=== PATIENT | male | born 1990 | race Caucasian/White ===

== ENCOUNTER 2019-01-17 02:24 | Emergency (ER) | payer OTHER ==
[~2019-01-17 02:24] MED LIST: Haloperidol INJ IV/IM* 5 MG/ML AMP ONE; LORazepam INJ* 2 MG/ML 1 ML VIAL ONE; diPHENhydraMINE IV* 50 MG/ML 1 ml VIAL (BENADRYL) ONE
[2019-01-17] MEDS ORDERED: Haloperidol TAB* 5 MG PO ONE (02:43)
[2019-01-17] MEDS ORDERED: LORazepam TAB(*) 1 MG PO ONE ×2 (02:44→10:21)
[2019-01-17] MEDS ORDERED: LORazepam INJ* 2 MG/ML 1 ML VIAL ONE (02:48)
[2019-01-17] MEDS ORDERED: Haloperidol INJ IV/IM* 5 MG/ML AMP ONE (02:50)
--- NOTE | 2019-01-17 02:55 | ED ---
Psychiatric Complaint - HPI Summary HPI Summary: A 29 y/o male brought in by [facility] ambulance and handcuffed by police presents to [facility] with a chief complaint of being brought in on a 941. At triage he rated his pain as a 0/10 in severity. Police were called because the patient was reportedly trashing someone's apartment. The patient denies trashing anyone' s apartment. He reports that he had less than one beer [employer]. He currently denies taking his medication and he denies being suicidal. The patient has a vast psychiatric history and appears angry. - History Of Current Complaint Chief Complaint: EDMentalHealth Time Seen by Provider: 01/17/19 02:30 Hx Obtained From: Patient, EMS, Other: - police Onset/Duration: Sudden Onset, Lasting Minutes, Still Present Timing: Minutes Severity Initially: Mild Severity Currently: Mild Character: Angry Aggravating Factor(s): Nothing Alleviating Factor(s): Nothing Associated Signs And Symptoms: Negative: Confused Has Suicidal: Denies: Thoughts - Allergies/Home Medications Allergies/Adverse Reactions: Allergies Allergy/AdvReac Type Severity Reaction Status Date / Time No Known Allergies Allergy Verified 02/13/17 02:40 PMH/Surg Hx/FS Hx/Imm Hx Musculoskeletal History: Denies: Hx Arthritis, Hx Back Problems Sensory History: Reports: Hx Contacts or Glasses Denies: Hx Hearing Aid Opthamlomology History: Reports: Hx Contacts or Glasses Neurological History: Reports: Hx Headaches - hx of concussions from football Psychiatric History: Reports: Hx Anxiety, Hx Depression, Hx Post Traumatic Stress Disorder, Hx Inpatient Treatment, Hx Community Mental Health Tx, Hx Bipolar Disorder, Hx Suicide Attempt, Hx of Violent Episodes Against Others, Hx Substance Abuse Denies: Hx Eating Disorder Infectious Disease History: No Infectious Disease History: Denies: Traveled Outside the [place] in Last 30 Days - Family History Known Family History: Positive: Hypertension - Social History Alcohol Use: None Alcohol Amount: 1 twelve pack , twice a day Substance Use Type: Reports: Other Substance Use Comment - Amount & Last Used: opiods Smoking Status (MU): Current Every Day Smoker Type: Cigarettes Have You Smoked in the Last Year: Yes Review of Systems Negative: Fever Psychological: Other - positive: brought in on a 941 for reportedly trashing someones apartment Positive: Other - negative: SI All Other Systems Reviewed And Are Negative: Yes Physical Exam - Summary Physical Exam Summary: VITAL SIGNS: Reviewed. GENERAL: Patient is a well-developed and nourished MALE who is lying comfortable in the stretcher. Patient is not in any acute respiratory distress. HEAD AND FACE: No signs of trauma. No ecchymosis, hematomas or skull depressions. No sinus tenderness. EYES: PERRLA, EOMI x 2, No injected conjunctiva, no nystagmus. EARS: Hearing grossly intact. Ear canals and tympanic membranes are within normal limits. MOUTH: Oropharynx within normal limits. NECK: Supple, trachea is midline, no adenopathy, no JVD, no carotid bruit, no c- spine tenderness, neck with full ROM. CHEST: Symmetric, no tenderness at palpation LUNGS: Clear to auscultation bilaterally. No wheezing or crackles. CVS: Regular rate and rhythm, S1 and S2 present, no murmurs or gallops appreciated. ABDOMEN: Soft, non-tender. No signs of distention. No rebound no guarding, and no masses palpated. Bowel sounds are normal. EXTREMITIES: FROM in all major joints, no edema, no cyanosis or clubbing. NEURO: Alert and oriented x 3. No acute neurological deficits. Speech is normal and follows commands. SKIN: Dry and warm Psych: Patient is cooperative however he seems angry Triage Information Reviewed: Yes Vital Signs On Initial Exam: Initial Vitals Temp Pulse Resp BP Pulse Ox 98.9 F 84 14 147/97 96 01/17/19 02:28 01/17/19 02:28 01/17/19 02:28 01/17/19 02:28 01/17/19 02:28 Vital Signs Reviewed: Yes Diagnostics - Vital Signs Vital Signs Temp Pulse Resp BP Pulse Ox 01/17/19 02:28 98.9 F 84 14 147/97 96 - Laboratory Result Diagrams: 01/17/19 03:40 01/17/19 03:40 Lab Statement: Any lab studies that have been ordered have been reviewed, and results considered in the medical decision making process. Re-Evaluation - Re-Evaluation First Eval Re-Evaluation Time: 03:04 Change: Worse Comment: Patient was being uncooperative so he will be given Haldol IM and Ativan IM. Second Eval Re-Evaluation Time: 08:45 Change: Unchanged Comment: Pt is medically cleared for a MHE. He is now standing up, calm, and cooperative. Third Eval Re-Evaluation Time: 10:00 Change: Unchanged Comment: Pt is lying in bed horizontally. He denies any SI or HI. Pt uses alcohol occasionally but denies any smoking. He uses K2 and used it last a few days ago. Fourth Eval Re-Evaluation Time: 10:20 Change: Improved Comment: Pt is sitting up and using crayons. He agrees to take Ativan PO. Course/Dx - Course Course Of Treatment: A 29 y/o male brought in by [facility] ambulance and handcuffed by police presents to [facility] with a chief complaint of being brought in on a 941. At triage he rated his pain as a 0/10 in severity. Police were called because the patient was reportedly trashing someone's apartment. The patient denies trashing anyone's apartment. He reports that he had less than one beer [employer]. He reports that he currently denies taking his medication and he denies being suicidal. The patient has a vast psychiatric history and appears angry. The physical exam revealed that the patient was cooperative but seemed angry. Patient was then being uncooperative and so he was given Haldol IM and Ativan IM.Bloodwork, chemisties and toxicology obtained and are WNL. This patient will be signed out from Dr. Shaw to Dr. Ayoub upon shift change at 07:00 01/17/19 pending medical clearance and MHE. - Differential Dx/Clinical Impression Provider Diagnosis: Mental health problem, Hypokalemia, Substance abuse Discharge - Sign-Out/Discharge Documenting (check all that apply): Sign-Out Patient Signing out patient TO: Sujatha Ayoub - pending medical clearance and MHE. Patient Received Moderate/Deep Sedation with Procedure: No - Discharge Plan Condition: Stable Disposition: HOME Referrals: No Primary Care Phys,NOPCP [Primary Care Provider] - - Billing Disposition and Condition Condition: STABLE Disposition: Home - Attestation Statements Document Initiated by Scribe: Yes Documenting Scribe: Christopher Lucero Provider For Whom Scribe is Documenting (Include Credential): Charlotte Shaw MD Scribe Attestation: Christopher Grover scribed for Charlotte Shaw MD on 01/17/19 at 2016. Scribe Documentation Reviewed: Yes Provider Attestation: The documentation as recorded by the scribe, Christopher Lucero accurately reflects the service I personally performed and the decisions made by me, Charlotte Shaw MD Status of Scribe Document: Viewed
[2019-01-17] MEDS ORDERED: LORazepam INJ* 2 MG/ML 1 ML VIAL IM ONE (02:58)
[2019-01-17] MEDS ORDERED: Haloperidol INJ IV/IM* 5 MG/ML AMP IM ONE (02:58)
[2019-01-17] MEDS ORDERED: diPHENhydraMINE IV* 50 MG/ML 1 ml VIAL (BENADRYL) IM ONE (02:59)
[2019-01-17 03:49] LABS: ABS Basophils 0 10^3/ul (0-0.2); ABS Eosinophils 0 10^3/ul (0-0.6); ABS Lymphocytes 1.4 10^3/ul (1.0-4.8); ABS Monocytes 0.6 10^3/ul (0-0.8); ABS Nucleated RBC 0 10^3/ul; Eosinophil % 0.7 %; Hematocrit 43 % (36-46); Hemoglobin 15.1 g/dL (14.0-18.0); Mean Corpuscular HGB Conc 35 g/dL (31-36); Mean Corpuscular Hemoglobin 33 pg (27-31); Mean Corpuscular Volume 94 fL (80-94); Mean Platelet Volume 6.8 fL (7.4-10.4); Nucleated Red Blood Cells % 0.1; Platelet Count 247 10^3/uL (150-450); Red Blood Count 4.61 10^6 /uL (4.18-5.48); Red Cell Distribution Width 12 % (10.5-15); White Blood Count 7.1 10^3/uL (3.5-10.8)
[2019-01-17 04:05] LABS: ALT 30 U/L (7-52); AST 23 U/L (13-39); Albumin 4.6 g/dL (3.2-5.2); Albumin/Globulin Ratio 2.2 (1-3); Alkaline Phosphatase 89 U/L (34-104); Anion Gap 8 mmol/L (2-11); BUN/Creatinine Ratio 11.9 (8-20); Blood Urea Nitrogen 10 mg/dL (6-24); CO2 Carbon Dioxide 25 mmol/L (22-32); Calcium 9.4 mg/dL (8.6-10.3); Chloride 104 mmol/L (101-111); EGFR African American 132.6 (>60); EGFR Non-African American 109.6 (>60); Globulin 2.1 g/dL (2-4); Glucose 119 mg/dL (70-100); Potassium 3.1 mmol/L (3.5-5.0); Sodium 137 mmol/L (135-145); Total Protein 6.7 g/dL (6.4-8.9)
[2019-01-17 04:33] LABS: Acetaminophen < 15 mcg/mL; Alcohol < 10 mg/dL (<10); Salicylate < 2.50 mg/dL (<30)
[2019-01-17 04:49] LABS: TSH (Thyroid Stimulating Horm) 1.76 mcIU/mL (0.34-5.60)
--- NOTE | 2019-01-17 08:05 | ED ---
Progress - Progress Note Progress Note: Receiving sign out from Dr. Shaw, pending medical clearance and MHE at 0700 . Pt is currently sleeping, but was aroused. He is not speaking but is cooperative with exam. Pt was brought in on a 9.41 status and was given Haldol, Benadryl and Ativan at 03:04am. As per nurse Eder, he is on q15 min supervision. As pt is waking up he wretches but does not vomit. PMHx anxiety, depression, PTSD, bipolar disorder. Vital signs: 110 bpm, BP 99/64, O2 sat 94%. Appearance: Well-appearing, no pain distress, well-nourished Skin: Warm, color reflects adequate perfusion, dry Head: Normal Head/Face inspection, atraumatic Eyes: Conjunctiva clear ENT: Normal inspection Neck: Supple, no nodes, no JVD Respiratory: Lungs clear, normal breath sounds, no respiratory distress Cardio: RRR, No murmur, pulses normal, brisk capillary refill Abdomen: Soft, nontender, wretching but not vomiting Bowel sounds: Present Musculoskeletal: Strength Intact/ROM intact, no calf tenderness, no edema. Psychological: Normal Neuro: Alert, muscle tone normal, no focal deficit Re-Evaluation - Re-Evaluation First Eval Re-Evaluation Time: 07:28 Change: Unchanged Comment: Evaluated pt at change of shift. Second Eval Re-Evaluation Time: 08:45 Change: Unchanged Comment: Pt is medically cleared for a MHE. He is now standing up, calm, and cooperative. Third Eval Re-Evaluation Time: 10:00 Change: Unchanged Comment: Pt is lying in bed horizontally. Advised to lie on stretcher in usual fashion. Nurse Eder reported behavior of putting items in sink. Nurse's notes reviewed. Further telemetry monitoring not necessary. Pt is cooperative. He denies any SI or HI. Pt uses alcohol occasionally but denies any smoking. He uses K2 and used it last a few days ago. Fourth Eval Re-Evaluation Time: 10:20 Change: Improved Comment: Pt is sitting up and using crayons. He agrees to take Ativan PO. Denies SI/HI. Restless but cooperative. Fifth Eval Re-Evaluation Time: 15:15 Change: Improved Comment: Pt's mother is here. Pt sitting on bed calmly. Denies SI/HI. Mother willing to take pt home. Pt agrees. Course/Dx - Course Course Of Treatment: Receiving sign out from Dr. Shaw, pending medical clearance and MHE. He is not speaking but is cooperative with exam. Pt was brought in on a 9.41. A physical exam was normal. Pt was medicated at 03:04 with haldol, benadryl, ativan all IM. Pt uses alcohol occasionally but denies any smoking. He uses K2 and used it last a few days ago. Pt has a potassium of 3.1 and he was given KCl 40 mEq. UA was positive for cannabinoids. Pt medications reviewed this visit. Nurses notes reviewed. Allergies noted. In the ED course, pt mother came to the ED, and states she is willing to take him home. He has been getting care at a residential/judaism. He is discharged as per Dr. Matos with final dx substance abuse, and hypokalemia. He is agreeable with this plan. - Diagnoses Provider Diagnoses: Hypokalemia, Substance abuse - Provider Notifications Discussed Care Of Patient With: Boo Matos Time Discussed With Above Provider: 10:11 Instructed by Provider To: Other - Pending MHE. At 15:00 spoke to extrusion operator Criselda on behalf of Dr. Matos. Pt is homeless and has been sleeping in a judaism. As per mother last night pt was agitated and confused, and was speaking jibberish. Mother is now present and is willing to take him home. Final dx of substance abuse. Discharge - Sign-Out/Discharge Documenting (check all that apply): Patient Departure - Discharge with mother , Receiving Sign-Out Receiving patient FROM: Charlotte Shaw - 01/17/19, 0700 Patient Received Moderate/Deep Sedation with Procedure: No - Discharge Plan Condition: Stable Disposition: HOME Referrals: No Primary Care Phys,NOPCP [Primary Care Provider] - - Billing Disposition and Condition Condition: STABLE Disposition: Home - Attestation Statements Document Initiated by Scribe: Yes Documenting Scribe: Ledy Araujo Provider For Whom Scribe is Documenting (Include Credential): Sujatha Ayoub MD Scribe Attestation: Ledy Grover, scribed for Sujatha Ayoub MD on 01/17/19 at 2312. Scribe Documentation Reviewed: Yes Provider Attestation: The documentation as recorded by the scribe, Ledy Araujo accurately reflects the service I personally performed and the decisions made by me, Sujatha Ayoub MD Status of Scribe Document: Viewed
[2019-01-17 08:33] LABS: Urine Appearance Cloudy; Urine Bacteria Absent (Absent); Urine Bilirubin Negative (Negative); Urine Blood Negative (Negative); Urine Color Yellow; Urine Glucose Negative (Negative); Urine Ketones Negative (Negative); Urine Nitrite Negative (Negative); Urine Protein Negative (Negative); Urine Red Blood Cell 1+(3-5/hpf) (Absent); Urine Specific Gravity 1.011 (1.010-1.030); Urine Squamous Epithelial Cell Present (Absent); Urine Urobilinogen Negative (Negative); Urine White Blood Cell 3+(>20/hpf) (Absent)
[2019-01-17] MEDS ORDERED: Potassium Chlor TAB* 20 MEQ TAB.ER PO ONE (08:46)
[2019-01-17 08:50] LABS: Barbiturates Urine Screen None Detected (None Detect); Benzodiazepine Urine Screen None Detected (None Detect); Urine Cannabinoids Screen Presumptive Positive (None Detect)
[2019-01-17] MEDS ORDERED: Ziprasidone CAP* 80 MG PO ONE (14:06)
[2019-01-17 16:16] VITALS: BP 000/00
== END 2019-01-17 16:15 | disposition home or self-care (01) ==
LOC: ED 02:24
DX: E87.6 Hypokalemia (principal); F12.10 Cannabis abuse, uncomplicated; F41.9 Anxiety disorder, unspecified; F32.9 Major depressive disorder, single episode, unspecified; F17.210 Nicotine dependence, cigarettes, uncomplicated
CPT/HCPCS: 36415; 80053; 80307; 80320; 80329; 81003; 81015; 84443; 85025; 87086; 96372; 99285; A9270-GY; G0480; J1200; J1630; J2060

== ENCOUNTER 2019-01-19 14:31 | Inpatient (IN) | payer OTHER ==
[2019-01-19] MEDS ORDERED: Nicotine Inhaler* 10 MG AMP INH PRN (14:43)
[2019-01-19] MEDS ORDERED: KETAMINE HCL* 50 MG/ML 10 ML VIAL ONE (14:45)
--- NOTE | 2019-01-19 14:47 | ED ---
Psychiatric Complaint - HPI Summary HPI Summary: Patient is a 29 y/o male brought in by police who presents to the ED c/o aggression. As per police, they were called in for a report of a male trying to get in and out of cars. Patient was found on the side of the road. Upon police arrival patient was aggressive and would not give them any information. When asked for a drivers license patient gave the police a playing card. He c/o being cold. Patient was here on 01/17/19 on a 9.41 for aggressive behavior. While here patient was sedated and diagnosed with substance abuse and hypokalemia. PMHx anxiety, depression, PTSD, bipolar disorder, violent episodes , substance abuse. He has a hx of K2 spice and opioid use. Patient is a smoker. Patient is a level 5 caveat due to his AMS. - History Of Current Complaint Chief Complaint: EDMentalHealth Time Seen by Provider: 01/19/19 14:36 Hx Obtained From: EMS, Medical Records Hx From Patient Unobtainable Due To: Altered Mental Status Onset/Duration: Gradual Onset, Still Present Timing: Constant Character: Angry - agitated Aggravating Factor(s): Drug Use - possible K2 Alleviating Factor(s): Nothing Associated Signs And Symptoms: Positive: Hostile Related History: Positive For: Prior Psychiatric Issues - Allergies/Home Medications Allergies/Adverse Reactions: Allergies Allergy/AdvReac Type Severity Reaction Status Date / Time No Known Allergies Allergy Verified 01/19/19 14:33 PMH/Surg Hx/FS Hx/Imm Hx Musculoskeletal History: Denies: Hx Arthritis, Hx Back Problems Sensory History: Reports: Hx Contacts or Glasses Denies: Hx Hearing Aid Opthamlomology History: Reports: Hx Contacts or Glasses Neurological History: Reports: Hx Headaches - hx of concussions from football Psychiatric History: Reports: Hx Anxiety, Hx Depression, Hx Post Traumatic Stress Disorder, Hx Inpatient Treatment, Hx Community Mental Health Tx, Hx Bipolar Disorder, Hx Suicide Attempt, Hx of Violent Episodes Against Others, Hx Substance Abuse Denies: Hx Eating Disorder Infectious Disease History: Denies: Traveled Outside the [place] in Last 30 Days - Family History Known Family History: Positive: Hypertension - Social History Alcohol Use: None Alcohol Amount: 1 twelve pack , twice a day Hx Substance Use: Yes Substance Use Type: Reports: Synthetic Drugs - K2 spice, Other Substance Use Comment - Amount & Last Used: opiods Hx Tobacco Use: Yes Smoking Status (MU): Current Every Day Smoker Type: Cigarettes Have You Smoked in the Last Year: Yes Review of Systems Positive: Other - cold Positive: Other - aggression All Other Systems Reviewed And Are Negative: No Physical Exam - Summary Physical Exam Summary: Appearance: Well appearing, no pain distress Skin: warm, dry, reflects adequate perfusion Head/face: normal Eyes: EOMI, BRIANNA ENT: mucous membranes moist Neck: supple, non-tender Respiratory: CTA, breath sounds present Cardiovascular: RRR, pulses symmetrical Abdomen: non-tender, soft Bowel Sounds: present Musculoskeletal: normal, strength/ROM intact Neuro: normal, sensory motor intact, A&Ox3 Psych: appears agitated but mute, makes hand gestures only, sighs repeatedly Triage Information Reviewed: Yes Vital Signs Reviewed: Yes Completion Of Physical Exam Limited Due To: Level 5 - AMS Diagnostics - Laboratory Result Diagrams: 01/19/19 15:23 01/19/19 15:23 Lab Statement: Any lab studies that have been ordered have been reviewed, and results considered in the medical decision making process. Re-Evaluation - Re-Evaluation First Eval Re-Evaluation Time: 18:30 Change: Unchanged Comment: Pt is medically cleared for a MHE. Second Eval Re-Evaluation Time: 18:56 Change: Unchanged Comment: Pt is still only speaking in hand gestures. Course/Dx - Course Course Of Treatment: Nurse's notes reviewed. Patient presents for the same symptoms only days apart. He previously had been known to be smoking spice. Today he is mostly medial and makes only gestures with hand motions. He is positive again for marijuana but is unable to give us much more in the way of history. He was observed here for some time and then had mental health evaluation given that he was calm but remained psychotic. Mental health and discussion with the psychiatrist wish to observe him for more time in hopes of his sobering. They wanted medications to be given so Ativan was given here. He 'll be observed through the night and reevaluated when able. Signed out to oncoming ER physician. - Differential Dx/Clinical Impression Differential Diagnosis/HQI/PQRI: Positive: Acute Psychosis, Drug Overdose/ Unintentional Provider Diagnosis: Acute psychosis - Physician Notifications Discussed Care Of Patient With: Boo Matos Time Discussed With Above Provider: 20:30 Instructed by Provider To: Other - Give pt Haldol and Ativan and let him sober up. Pt can then be discharged after sobriety. Discharge - Sign-Out/Discharge Documenting (check all that apply): Sign-Out Patient Signing out patient TO: Charlotte Shaw Patient Received Moderate/Deep Sedation with Procedure: No - Discharge Plan Condition: Stable Referrals: No Primary Care Phys,NOPCP [Primary Care Provider] - - Billing Disposition and Condition Condition: STABLE - Attestation Statements Document Initiated by Scribe: Yes Documenting Scribe: Ledy Araujo Provider For Whom Scribe is Documenting (Include Credential): Sp Thornton MD Scribe Attestation: Ledy Grover, scribed for Sp Thornton MD on 01/19/19 at 2123. Scribe Documentation Reviewed: Yes Provider Attestation: The documentation as recorded by the Ledy klein accurately reflects the service I personally performed and the decisions made by , Sp Thornton MD Status of Scribe Document: Viewed
[2019-01-19 15:34] LABS: ABS Basophils 0 10^3/ul (0-0.2); ABS Eosinophils 0 10^3/ul (0-0.6); ABS Lymphocytes 0.7 10^3/ul (1.0-4.8); ABS Monocytes 0.7 10^3/ul (0-0.8); ABS Neutrophils 10.6 10^3/ul (1.5-7.7); ABS Nucleated RBC 0 10^3/ul; Eosinophil % 0.2 %; Hematocrit 45 % (36-46); Hemoglobin 15.7 g/dL (14.0-18.0); Lymphocyte % 5.9 %; Mean Corpuscular HGB Conc 35 g/dL (31-36); Mean Corpuscular Hemoglobin 33 pg (27-31); Mean Corpuscular Volume 94 fL (80-94); Mean Platelet Volume 6.6 fL (7.4-10.4); Nucleated Red Blood Cells % 0.1; Platelet Count 237 10^3/uL (150-450); Red Blood Count 4.73 10^6 /uL (4.18-5.48); Red Cell Distribution Width 12 % (10.5-15)
[2019-01-19 15:50] LABS: ALT 35 U/L (7-52); AST 43 U/L (13-39); Albumin 4.7 g/dL (3.2-5.2); Alkaline Phosphatase 99 U/L (34-104); Anion Gap 7 mmol/L (2-11); BUN/Creatinine Ratio 15.8 (8-20); Blood Urea Nitrogen 15 mg/dL (6-24); CO2 Carbon Dioxide 28 mmol/L (22-32); Calcium 9.4 mg/dL (8.6-10.3); Chloride 101 mmol/L (101-111); EGFR African American 115.1 (>60); EGFR Non-African American 95.1 (>60); Globulin 2.3 g/dL (2-4); Glucose 92 mg/dL (70-100); Potassium 3.9 mmol/L (3.5-5.0); Sodium 136 mmol/L (135-145)
[2019-01-19 15:56] LABS: Acetaminophen < 15 mcg/mL; Alcohol < 10 mg/dL (<10); Salicylate < 2.50 mg/dL (<30)
[2019-01-19 16:10] LABS: TSH (Thyroid Stimulating Horm) 0.96 mcIU/mL (0.34-5.60)
[2019-01-19 18:28] LABS: Urine Appearance Clear; Urine Bilirubin Negative (Negative); Urine Blood Negative (Negative); Urine Color Yellow; Urine Glucose Negative (Negative); Urine Ketones 2+ (Negative); Urine Nitrite Negative (Negative); Urine Protein Negative (Negative); Urine Specific Gravity 1.025 (1.010-1.030); Urine Urobilinogen Negative (Negative)
[2019-01-19 18:40] LABS: Barbiturates Urine Screen None Detected (None Detect); Benzodiazepine Urine Screen None Detected (None Detect); Urine Cannabinoids Screen Presumptive Positive (None Detect)
[2019-01-19] MEDS ORDERED: LORazepam TAB(*) 1 MG PO ONE (20:24)
[2019-01-19 20:43] LABS: Creatine Kinase 1375 U/L (10-223)
--- NOTE | 2019-01-19 22:38 | ED ---
Progress - Progress Note Progress Note: Patient is a 29 y/o male brought in by police who presents to the ED c/o aggression. Patient was signed out from Dr. Sp Thornton to Dr. Charlotte Shaw during a shift change, pending disposition and sobriety. - Consult/PCP Time Called: 19:15 Re-Evaluation - Re-Evaluation First Eval Re-Evaluation Time: 18:30 Change: Unchanged Comment: Pt is medically cleared for a MHE. Second Eval Re-Evaluation Time: 18:56 Change: Unchanged Comment: Pt is still only speaking in hand gestures. Course/Dx - Course Course Of Treatment: Nurse's notes reviewed. Patient presents for the same symptoms only days apart. He previously had been known to be smoking spice. Today he is mostly medial and makes only gestures with hand motions. He is positive again for marijuana but is unable to give us much more in the way of history. He was observed here for some time and then had mental health evaluation given that he was calm but remained psychotic. Mental health and discussion with the psychiatrist wish to observe him for more time in hopes of his sobering. They wanted medications to be given so Ativan was given here. He 'll be observed through the night and reevaluated when able. Signed out to oncoming ER physician. Dr. Shaw spoke with Dr. Boo Matos, psychiatry, who will accept the patient with a dx of psychosis. - Diagnoses Provider Diagnoses: Psychosis - Provider Notifications Discussed Care Of Patient With: Boo Matos - Psychiatry Time Discussed With Above Provider: 23:02 Instructed by Provider To: Admit As Inpatient Discharge - Sign-Out/Discharge Documenting (check all that apply): Patient Departure - Admit, Receiving Sign- Out Receiving patient FROM: Sp Thornton - Pending disposition and sobriety. - Discharge Plan Condition: Stable Disposition: ADMITTED TO [facility] - Billing Disposition and Condition Condition: STABLE Disposition: Admitted to [facility] - Attestation Statements Document Initiated by Scribe: Yes Documenting Scribe: Rocky Olivia Provider For Whom Scribe is Documenting (Include Credential): Charlotte Shaw MD Scribe Attestation: Rocky Grover, scribed for Charlotte Shaw MD on 01/20/19 at 0556. Scribe Documentation Reviewed: Yes Provider Attestation: The documentation as recorded by the scribe, Rocky Olivia accurately reflects the service I personally performed and the decisions made by me, Charlotte Shaw MD Status of Scribe Document: Viewed
[2019-01-19] MEDS ORDERED: Haloperidol TAB* 5 MG PO PRN (23:00)
[2019-01-20] MEDS ORDERED: LORazepam INJ* 2 MG/ML 1 ML VIAL ONE ×2 (00:05→00:08)
[2019-01-20] MEDS ORDERED: diPHENhydraMINE IV* 50 MG/ML 1 ml VIAL (BENADRYL) ONE (00:08)
[2019-01-20] MEDS ORDERED: Haloperidol INJ IV/IM* 5 MG/ML AMP ONE (00:08)
[2019-01-20] MEDS ORDERED: LORazepam TAB(*) 1 MG ONE (01:21)
[2019-01-20] MEDS ORDERED: Haloperidol TAB* 5 MG ONE (01:22)
[2019-01-20] MEDS ORDERED: Al Hydrox/Mg Hydrox/Simet LIQ* 30 ML UDC PO PRN (04:07)
[2019-01-20] MEDS ORDERED: Nicotine Inhaler* 10 MG AMP INH PRN (04:07)
[2019-01-20] MEDS ORDERED: Mouth Piece, Nicotine* 1 EACH CARTRIDGE INH ONE (05:00)
[2019-01-20] MEDS: Vitamin THERAPEUTIC TAB PO SCH (10:55)
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
[2019-01-20] MEDS: LORazepam TAB(*) 1 MG PO PRN (16:54)
[2019-01-20] MEDS: OLANzapine TAB*ODT* 10 MG TAB PO PRN (16:54)
[2019-01-21] MEDS: OLANzapine TAB*ODT* 10 MG TAB PO SCH ×2 (02:00→20:24)
[2019-01-21] MEDS: Nicotine GUM* 2 MG PO PRN ×4 (05:05→21:43)
[2019-01-21] MEDS: Vitamin THERAPEUTIC TAB PO SCH (08:15)
[2019-01-21] MEDS: OLANzapine TAB*ODT* 10 MG TAB PO PRN (14:00)
[2019-01-21] MEDS: Cephalexin CAP* 500 MG PO SCH (20:23)
[2019-01-21] MEDS: Acetaminophen TAB* 325 MG PO PRN (20:26)
[2019-01-21] MEDS: LORazepam TAB(*) 1 MG PO PRN (21:46)
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
[2019-01-22] MEDS: Cephalexin CAP* 500 MG PO SCH ×4 (07:07→21:03)
[2019-01-22] MEDS: Vitamin THERAPEUTIC TAB PO SCH (07:07)
[2019-01-22] MEDS: OLANzapine TAB*ODT* 10 MG TAB PO PRN (14:06)
--- NOTE | 2019-01-22 14:51 | PN ---
Subjective - Subjective Date of Service: 01/22/19 Service Type: 13085 Hosp care 35 min high complexity Subjective: Andrzej has been disorganized in his thoughts abd behaviors. He has been pacing aimlessly at times playing guitter. Doesn't think he is Andrzej and wouldn't say who is actually. Wants his shoes back so that he can leave. Doesn' t say much, touches everything on his way. Stares intensly when asked any question but doesn't answer. Hospitalist prescribed antibiotics for infection on the back of right ankle. Objective - General Observations Appearance: Unkempt Appears Stated Age: Yes Stature: Overweight, Tall Posture: Tense Eye Contact: Intense Behavior/Activity: Impulsive Separation from Parent/Guardian: Unremarkable/Age Appropriate General Observations Comment: Guarded - Interaction Observations Attitude Towards Examiner: Mistrustful Attitude to Examiner Comment: Uncoooperative Stated Mood: Dysphoric Affect: Restricted Speech Pattern/Tone: Delayed Thought Process: Disorganized Thought Content: Paranoid - Cognitive Function Orientation: Unable to Determine Level of Consciousness: Alert Cognition: Impaired Attention/Concentration Estimated Intelligence: Unknown Insight: Difficulty Acknowledging Presence of Psyciatric Problems Judgment Within Normal Limits: No Ability to Make Reasonable Decisions: Serverely Impaired - Medication Compliance Cooperative with Inpatient Medication Regimen: Partial - Group Participation Participates in Group Activities: No Assessment - Assessment Merits Inpatient Hospitalization: For Immediate Safety, For Stabilization, For Ongoing Evaluation, For Discharge Planning Clinical Impression: Patient is psychotic with disorganizations of thoughts and behaviors. BSU: Problem List - Patient Problems (1) Unspecified psychosis Current Visit: No Status: Acute Plan - Plan Treatment Plan: Name: ANDRZEJ LOVE Birthdate: 1990 [id number] Continued Medication Management: Continue Outpt Medication Medications: Current Medications Acetaminophen (Tylenol Tab*) 650 mg PO Q4H PRN PRN Reason: PAIN or TEMP > 101 F Last Admin: 01/21/19 20:26 Dose: 650 mg Al Hydrox/Mg Hydrox/Simethicone (Maalox Plus*) 30 ml PO Q4H PRN PRN Reason: INDIGESTION Albuterol (Ventolin Hfa Inhaler*) 2 puff INH Q6H PRN PRN Reason: WHEEZING Cephalexin HCl (Keflex Cap*) 500 mg PO QID [facility] Stop: 01/25/19 23:59 Last Admin: 01/22/19 14:06 Dose: 500 mg Lorazepam (Ativan Tab(*)) 2 mg PO Q6H PRN PRN Reason: AGITATION Last Admin: 01/21/19 21:46 Dose: 2 mg Multivitamins (Theragran Tab*) 1 tab PO DAILY [facility] Last Admin: 01/22/19 07:07 Dose: 1 tab Nicotine (Nicotine Inhaler*) 10 mg INH Q2H PRN PRN Reason: CRAVING Last Admin: 01/21/19 21:43 Dose: 10 mg Nicotine Polacrilex (Nicotine Gum*) 2 mg PO Q2H PRN PRN Reason: CRAVING Last Admin: 01/21/19 21:43 Dose: 2 mg Olanzapine (Zyprexa *Odt*) 10 mg PO BEDTIME [facility] Last Admin: 01/21/19 20:24 Dose: 10 mg Olanzapine (Zyprexa *Odt*) 10 mg PO Q6H PRN PRN Reason: AGITATION Last Admin: 01/22/19 14:06 Dose: 10 mg - Discharge Plan Discharge Plan: Inpatient Hospitalization [facility]
[2019-01-22] MEDS: Acetaminophen TAB* 325 MG PO PRN (16:31)
[2019-01-22] MEDS: LORazepam TAB(*) 1 MG PO PRN (21:03)
[2019-01-22] MEDS: OLANzapine TAB*ODT* 10 MG TAB PO SCH (21:03)
[2019-01-23] MEDS: LORazepam TAB(*) 1 MG PO PRN ×2 (03:04→13:23)
[2019-01-23] MEDS: Vitamin THERAPEUTIC TAB PO SCH (09:35)
[2019-01-23] MEDS: Cephalexin CAP* 500 MG PO SCH ×4 (09:35→20:58)
[2019-01-23] MEDS: OLANzapine TAB*ODT* 10 MG TAB PO SCH ×2 (10:41→20:58)
--- NOTE | 2019-01-23 15:38 | PN ---
Subjective - Subjective Date of Service: 01/23/19 Service Type: 16898 Hosp care 35 min high complexity Subjective: NIRMAL will not speak to me, but is observed frequently throughout the day. He is frequently upset and loud, and he is nearly full of rage from time to time. He is clearly unhappy here, seeming to be responding to being hemmed in by the environment. He talks about going to see his daughter, although he doesn't know where she is. He talks about jumping out of a plane, of not being told things that are important, and being distrustful of the staff here. He has refused PRN olanzapine while accepting Ativan and then talking about being positive for benzodiazepines in rehab when he didn't take any. In all, he is disorganized and confused and upset. Objective - General Observations Appearance: Disheveled Appears Stated Age: Yes Stature: WNL, Overweight Posture: WNL Eye Contact: Avoidant Behavior/Activity: Agitated - Interaction Observations Attitude Towards Examiner: Uncooperative, Evasive Stated Mood: Dysphoric, Irritable, Angry Affect: Labile Speech Pattern/Tone: Clear, Excessive, Loud Volume Thought Process: Disorganized, Filght of Ideas Perception: WNL Thought Content: Paranoid Delusion Type: Persecution - Cognitive Function Orientation: Person, Place, Time, Confused Level of Consciousness: Awake, Alert Cognition: Impaired Cognition Insight: Difficulty Acknowledging Presence of Psyciatric Problems Ability to Make Reasonable Decisions: Serverely Impaired - Medication Compliance Cooperative with Inpatient Medication Regimen: Partial - Group Participation Participates in Group Activities: No Group Participation Comments: Not appropriate for groups. Assessment - Assessment Merits Inpatient Hospitalization: For Immediate Safety Clinical Impression: Patient is psychotic with disorganizations of thoughts and behaviors. Plan - Plan Treatment Plan: Name: ANDRZEJ LOVE Birthdate: 1990 [id number] Continued Medication Management: Different Medication Medications: Current Medications Acetaminophen (Tylenol Tab*) 650 mg PO Q4H PRN PRN Reason: PAIN or TEMP > 101 F Last Admin: 01/22/19 16:31 Dose: 650 mg Al Hydrox/Mg Hydrox/Simethicone (Maalox Plus*) 30 ml PO Q4H PRN PRN Reason: INDIGESTION Albuterol (Ventolin Hfa Inhaler*) 2 puff INH Q6H PRN PRN Reason: WHEEZING Cephalexin HCl (Keflex Cap*) 500 mg PO QID [facility] Stop: 01/25/19 23:59 Last Admin: 01/23/19 13:14 Dose: 500 mg Lorazepam (Ativan Tab(*)) 2 mg PO Q6H PRN PRN Reason: AGITATION Last Admin: 01/23/19 13:23 Dose: 2 mg Multivitamins (Theragran Tab*) 1 tab PO DAILY [facility] Last Admin: 01/23/19 09:35 Dose: 1 tab Nicotine (Nicotine Inhaler*) 10 mg INH Q2H PRN PRN Reason: CRAVING Last Admin: 01/21/19 21:43 Dose: 10 mg Nicotine Polacrilex (Nicotine Gum*) 2 mg PO Q2H PRN PRN Reason: CRAVING Last Admin: 01/21/19 21:43 Dose: 2 mg Olanzapine (Zyprexa *Odt*) 10 mg PO Q6H PRN PRN Reason: AGITATION Last Admin: 01/22/19 14:06 Dose: 10 mg Olanzapine (Zyprexa *Odt*) 10 mg PO BID [facility] Last Admin: 01/23/19 10:41 Dose: 10 mg
[2019-01-23] MEDS: OLANzapine TAB*ODT* 10 MG TAB PO PRN ×2 (15:43→18:54)
[2019-01-23] MEDS: hydrOXYzine HCL TAB* 50 MG PO PRN (17:52)
[2019-01-23] MEDS: Acetaminophen TAB* 325 MG PO PRN (23:35)
[2019-01-24] MEDS: Cephalexin CAP* 500 MG PO SCH ×4 (07:58→20:27)
[2019-01-24] MEDS: OLANzapine TAB*ODT* 10 MG TAB PO SCH ×2 (07:58→20:27)
[2019-01-24] MEDS: Vitamin THERAPEUTIC TAB PO SCH (07:58)
[2019-01-24] MEDS: Nicotine GUM* 2 MG PO PRN (19:16)
[2019-01-24] MEDS: hydrOXYzine HCL TAB* 50 MG PO PRN (19:26)
[2019-01-24] MEDS: OLANzapine TAB*ODT* 10 MG TAB PO PRN (19:26)
--- NOTE | 2019-01-24 20:34 | PN ---
Subjective - Subjective Date of Service: 01/24/19 Service Type: 28905 Hosp care 35 min high complexity Subjective: "NIRMAL" remains disorganized and psychotic. He does not recall arriving at the hospital. His last memory [place] and then waking up here in the hospital. He has declined to wear his own shorts , requesting instead a pair of ill-fitting paper scrub pants. He seems to not recognize people, for example a man visited last night who he could not identify , but stated it was not his father. He remains agitated and walks nearly constantly, throwing a ball against the wall. He does not maintain personal boundaries well and plows past people who are not interested in getting out of his way. His eyes appear to be unfocused and he does not always respond well to questions. After a certain number of questions, in fact, he becomes agitated and leaves the interview. Objective - General Observations Appearance: Disheveled Appears Stated Age: Yes Stature: Overweight Posture: WNL Eye Contact: Intermittent Behavior/Activity: Impulsive, Agitated - Interaction Observations Attitude Towards Examiner: Confused, Evasive Stated Mood: Dysphoric, Irritable Affect: Flat Speech Pattern/Tone: Clear, Delayed, Rambling Thought Process: Incoherent, Circumstantial Perception: WNL Thought Content: Paranoid Hallucination Type: None Delusion Type: Persecution - Cognitive Function Orientation: A&O x 4, Confused Level of Consciousness: Awake, Alert Cognition: Impaired Ability to Abstract Insight: Difficulty Acknowledging Presence of Psyciatric Problems Judgment Within Normal Limits: No Ability to Make Reasonable Decisions: Serverely Impaired - Medication Compliance Cooperative with Inpatient Medication Regimen: Partial - Group Participation Participates in Group Activities: No Assessment - Assessment Merits Inpatient Hospitalization: For Immediate Safety Clinical Impression: Patient is psychotic with disorganizations of thoughts and behaviors. Plan - Plan Treatment Plan: Name: ANDRZEJ LOVE Birthdate: 1990 [id number] Medications: Current Medications Acetaminophen (Tylenol Tab*) 650 mg PO Q4H PRN PRN Reason: PAIN or TEMP > 101 F Last Admin: 01/23/19 23:35 Dose: 650 mg Al Hydrox/Mg Hydrox/Simethicone (Maalox Plus*) 30 ml PO Q4H PRN PRN Reason: INDIGESTION Albuterol (Ventolin Hfa Inhaler*) 2 puff INH Q6H PRN PRN Reason: WHEEZING Cephalexin HCl (Keflex Cap*) 500 mg PO QID [facility] Stop: 01/25/19 23:59 Last Admin: 01/24/19 20:27 Dose: 500 mg Hydroxyzine HCl (Atarax Tab*) 50 mg PO Q4H PRN PRN Reason: anxiety/agitation Last Admin: 01/24/19 19:26 Dose: 50 mg Multivitamins (Theragran Tab*) 1 tab PO DAILY [facility] Last Admin: 01/24/19 07:58 Dose: 1 tab Nicotine (Nicotine Inhaler*) 10 mg INH Q2H PRN PRN Reason: CRAVING Last Admin: 01/21/19 21:43 Dose: 10 mg Nicotine Polacrilex (Nicotine Gum*) 2 mg PO Q2H PRN PRN Reason: CRAVING Last Admin: 01/24/19 19:16 Dose: 2 mg Olanzapine (Zyprexa *Odt*) 10 mg PO Q6H PRN PRN Reason: AGITATION Last Admin: 01/24/19 19:26 Dose: 10 mg Olanzapine (Zyprexa *Odt*) 10 mg PO BID [facility] Last Admin: 01/24/19 20:27 Dose: 10 mg - Discharge Plan Discharge Plan: Outpatient [facility]
[2019-01-25 08:42] LABS: HDL Cholesterol 43.9 mg/dL
[2019-01-25] MEDS: Cephalexin CAP* 500 MG PO SCH ×4 (09:24→21:13)
[2019-01-25] MEDS: Vitamin THERAPEUTIC TAB PO SCH (09:24)
[2019-01-25] MEDS: OLANzapine TAB*ODT* 10 MG TAB PO SCH ×2 (09:24→21:13)
[2019-01-25] MEDS: OLANzapine TAB*ODT* 10 MG TAB PO PRN ×2 (10:56→19:21)
--- NOTE | 2019-01-25 15:07 | PN ---
Subjective - Subjective Date of Service: 01/25/19 Service Type: 55209 Hosp care 15 min low complexity Subjective: CJ remains bizarre and is convinced he is well. Our next step will be to firm up his improvements. Happily he is more organized in the brief amount of time that he is interested in speaking with me. He is constantly in motion and tends to [place] people and brush past them in a somewhat predatory manner. He is becoming notorious for leaving his belongings around and then not being able to find them. Objective - General Observations Appearance: Disheveled Appears Stated Age: Yes Stature: Overweight Posture: WNL, Tense Eye Contact: Intermittent Behavior/Activity: Accelerated, Agitated - Interaction Observations Attitude Towards Examiner: Cooperative, Dismissive Stated Mood: Dysphoric, Irritable Affect: Blunted Speech Pattern/Tone: Delayed Thought Process: Goal Directed Perception: WNL Thought Content: WNL, Paranoid Hallucination Type: None Delusion Type: None - Cognitive Function Orientation: A&O x 4 Level of Consciousness: Awake, Alert Cognition: Impaired Cognition Insight: Difficulty Acknowledging Presence of Psyciatric Problems Judgment Within Normal Limits: No Ability to Make Reasonable Decisions: Moderately Impaired - Medication Compliance Cooperative with Inpatient Medication Regimen: Partial - Group Participation Participates in Group Activities: Partial Assessment - Assessment Merits Inpatient Hospitalization: For Immediate Safety Clinical Impression: Patient is psychotic with disorganizations of thoughts and behaviors. Plan - Plan Treatment Plan: Name: ANDRZEJ LOVE Birthdate: 1990 [id number] Medications: Current Medications Acetaminophen (Tylenol Tab*) 650 mg PO Q4H PRN PRN Reason: PAIN or TEMP > 101 F Last Admin: 01/23/19 23:35 Dose: 650 mg Al Hydrox/Mg Hydrox/Simethicone (Maalox Plus*) 30 ml PO Q4H PRN PRN Reason: INDIGESTION Albuterol (Ventolin Hfa Inhaler*) 2 puff INH Q6H PRN PRN Reason: WHEEZING Cephalexin HCl (Keflex Cap*) 500 mg PO QID [facility] Stop: 01/25/19 23:59 Last Admin: 01/25/19 13:51 Dose: 500 mg Hydroxyzine HCl (Atarax Tab*) 50 mg PO Q4H PRN PRN Reason: anxiety/agitation Last Admin: 01/24/19 19:26 Dose: 50 mg Multivitamins (Theragran Tab*) 1 tab PO DAILY [facility] Last Admin: 01/25/19 09:24 Dose: 1 tab Nicotine (Nicotine Inhaler*) 10 mg INH Q2H PRN PRN Reason: CRAVING Last Admin: 01/21/19 21:43 Dose: 10 mg Nicotine Polacrilex (Nicotine Gum*) 2 mg PO Q2H PRN PRN Reason: CRAVING Last Admin: 01/24/19 19:16 Dose: 2 mg Olanzapine (Zyprexa *Odt*) 10 mg PO Q6H PRN PRN Reason: AGITATION Last Admin: 01/25/19 10:56 Dose: 10 mg Olanzapine (Zyprexa *Odt*) 10 mg PO BID [facility] Last Admin: 01/25/19 09:24 Dose: 10 mg - Discharge Plan Discharge Plan: Out[facility]
[2019-01-25] MEDS: hydrOXYzine HCL TAB* 50 MG PO PRN (16:07)
--- NOTE | 2019-01-25 16:37 | PN ---
BSU: Group Therapy Note - Service Type Service Type: [id number] Group Psychotherapy - Medication Education Group: Patient was irritable and did not engage in conversation. He left within minutes of beginning of group.
[2019-01-26] MEDS: OLANzapine TAB*ODT* 10 MG TAB PO SCH (08:27)
[2019-01-26] MEDS: Vitamin THERAPEUTIC TAB PO SCH (08:27)
--- NOTE | 2019-01-26 14:15 | PN ---
Subjective - Subjective Date of Service: 01/26/19 Service Type: 44100 Hosp care 15 min low complexity Subjective: NIRMAL appears better on the surface. He is not rolling on the floor or boxing in the air and he is dressed more appropriately. Nevertheless, he continues not to recognize me and is confused in conversation and therefore avoids it. He does know that he wants to go home. Olanzapine seems to have calmed him, but it has not cleared him enough. Objective - General Observations Appearance: Neat Appears Stated Age: Yes Stature: Overweight Posture: WNL Eye Contact: Intermittent Behavior/Activity: Peculiar - Interaction Observations Attitude Towards Examiner: Cooperative, Confused, Dismissive Stated Mood: Dysphoric Affect: Flat Speech Pattern/Tone: Clear Thought Process: Goal Directed, [place] Perception: WNL Thought Content: WNL Thought Process: Lethality: Paranoid Ideation Hallucination Type: None Delusion Type: None - Cognitive Function Orientation: Person, Place, Time Level of Consciousness: Awake, Alert Cognition: Impaired Cognition Insight: Difficulty Acknowledging Presence of Psyciatric Problems Judgment Within Normal Limits: No Ability to Make Reasonable Decisions: Serverely Impaired - Medication Compliance Cooperative with Inpatient Medication Regimen: Yes - Group Participation Participates in Group Activities: No Assessment - Assessment Merits Inpatient Hospitalization: For Immediate Safety Clinical Impression: Patient is psychotic with disorganizations of thoughts and behaviors. Plan - Plan Treatment Plan: Name: ANDRZEJ LOVE Birthdate: 1990 [id number] NIRMAL has been taking olanzapine. It does not seem to be efficacious enough. We will change to Risperdal with an eye toward perhaps using an injectable risperidone or paliperidone. Continued Medication Management: Different Medication Medications: Current Medications Acetaminophen (Tylenol Tab*) 650 mg PO Q4H PRN PRN Reason: PAIN or TEMP > 101 F Last Admin: 01/23/19 23:35 Dose: 650 mg Al Hydrox/Mg Hydrox/Simethicone (Maalox Plus*) 30 ml PO Q4H PRN PRN Reason: INDIGESTION Albuterol (Ventolin Hfa Inhaler*) 2 puff INH Q6H PRN PRN Reason: WHEEZING Hydroxyzine HCl (Atarax Tab*) 50 mg PO Q4H PRN PRN Reason: anxiety/agitation Last Admin: 01/25/19 16:07 Dose: 50 mg Multivitamins (Theragran Tab*) 1 tab PO DAILY SHIRIN Last Admin: 01/26/19 08:27 Dose: 1 tab Nicotine (Nicotine Inhaler*) 10 mg INH Q2H PRN PRN Reason: CRAVING Last Admin: 01/21/19 21:43 Dose: 10 mg Nicotine Polacrilex (Nicotine Gum*) 2 mg PO Q2H PRN PRN Reason: CRAVING Last Admin: 01/24/19 19:16 Dose: 2 mg Risperidone (Risperdal-M Tab *) 2 mg PO BID SHIRIN; Protocol Risperidone (Risperdal-M Tab *) 2 mg PO Q6H PRN; Protocol PRN Reason: AGITATION - Discharge Plan Discharge Plan: Outpatient Follow Up
[2019-01-26] MEDS: Albuterol HFA INHALER* 8 gm MDI INH PRN (16:09)
[2019-01-26] MEDS: Nicotine GUM* 2 MG PO PRN (16:09)
[2019-01-26] MEDS: risperiDONE-M * 1 MG TAB.ORADIS PO PRN (16:42)
[2019-01-26] MEDS: hydrOXYzine HCL TAB* 50 MG PO PRN (16:42)
[2019-01-26] MEDS ORDERED: Haloperidol TAB* 5 MG PO PRN (18:00)
[2019-01-26] MEDS ORDERED: diPHENhydraMINE PO* 50 MG PO PRN (18:00)
[2019-01-26] MEDS: diPHENhydraMINE PO* 50 MG ONE ×2 (18:10→18:53)
[2019-01-26] MEDS: Haloperidol TAB* 5 MG ONE ×2 (18:10→18:52)
[2019-01-26] MEDS: risperiDONE-M * 1 MG TAB.ORADIS PO SCH (20:58)
[2019-01-27] MEDS: hydrOXYzine HCL TAB* 50 MG PO PRN (00:57)
[2019-01-27] MEDS: Nicotine GUM* 2 MG PO PRN ×3 (00:58→15:57)
[2019-01-27] MEDS: risperiDONE-M * 1 MG TAB.ORADIS PO SCH ×2 (08:06→21:33)
[2019-01-27] MEDS: Vitamin THERAPEUTIC TAB PO SCH (08:06)
[2019-01-27] MEDS: Acetaminophen TAB* 325 MG PO PRN (15:57)
[2019-01-27] MEDS: diPHENhydraMINE PO* 50 MG PO PRN (15:57)
[2019-01-27] MEDS: risperiDONE-M * 1 MG TAB.ORADIS PO PRN (15:58)
--- NOTE | 2019-01-27 16:02 | PN ---
Subjective - Subjective Date of Service: 01/27/19 Service Type: 77162 Hosp care 25 min moderate complexity Subjective: NIRMAL is not improving. He remains disorganized and bizarre, although at times he is goal directed, wanting to go [facility] and then take a bus to his mom's house. He states he knows where the house is and what bus to take, but he does not know where his mother is. He is getting frustrated being here, and he did not require PRNs during the day today. He mentioned his belief that [employer] agents were present on the unit and walking around here. Nevertheless, his lack of improvement and his potential volatility is worrying . Objective - General Observations Appearance: Disheveled Appears Stated Age: Yes Stature: Overweight Posture: WNL Eye Contact: Intermittent Behavior/Activity: Agitated - Interaction Observations Attitude Towards Examiner: Cooperative, Demanding Stated Mood: Irritable Affect: Blunted Speech Pattern/Tone: Clear, Loud Volume Thought Process: Goal Directed, Loose Associations Perception: WNL Thought Content: Preoccupation/Ruminations, Paranoid Delusion Type: Persecution - Cognitive Function Orientation: Person, Place, Time, Confused Level of Consciousness: Awake, Alert Cognition: Impaired Cognition Insight: Difficulty Acknowledging Presence of Psyciatric Problems Judgment Within Normal Limits: No Ability to Make Reasonable Decisions: Serverely Impaired - Medication Compliance Cooperative with Inpatient Medication Regimen: Yes - Group Participation Participates in Group Activities: No Assessment - Assessment Merits Inpatient Hospitalization: For Immediate Safety Clinical Impression: Patient is psychotic with disorganizations of thoughts and behaviors. 29-year- old white man who arrives at the hospital confused, hallucinating, and psychotic with no memory of the situation bringing him to the hospital with a significant history of drug abuse and a stated history of synthetic drug use. Plan - Plan Treatment Plan: Name: ANDRZEJ LOVE Birthdate: 1990 [id number] NIRMAL has been taking olanzapine. It does not seem to be efficacious enough. We will change to Risperdal with an eye toward perhaps using an injectable risperidone or paliperidone. Increase risperidone to 3 mg BID. Prepare to convert to 2PC. If he improves, move toward injectable medication. Consider transfer to [facility] and trial of clozapine. Continued Medication Management: Different Medication Medications: Current Medications Acetaminophen (Tylenol Tab*) 650 mg PO Q4H PRN PRN Reason: PAIN or TEMP > 101 F Last Admin: 01/27/19 15:57 Dose: 650 mg Al Hydrox/Mg Hydrox/Simethicone (Maalox Plus*) 30 ml PO Q4H PRN PRN Reason: INDIGESTION Albuterol (Ventolin Hfa Inhaler*) 2 puff INH Q6H PRN PRN Reason: WHEEZING Last Admin: 01/26/19 16:09 Dose: 2 puff Diphenhydramine HCl (Benadryl Po*) 50 mg PO Q6H PRN PRN Reason: Agitation/anxiety Last Admin: 01/27/19 15:57 Dose: 50 mg Haloperidol (Haldol Tab*) 5 mg PO ONCE PRN PRN Reason: AGITATION Last Admin: 01/26/19 18:10 Dose: 5 mg Hydroxyzine HCl (Atarax Tab*) 50 mg PO Q4H PRN PRN Reason: anxiety/agitation Last Admin: 01/27/19 00:57 Dose: 50 mg Multivitamins (Theragran Tab*) 1 tab PO DAILY SHIRIN Last Admin: 01/27/19 08:06 Dose: 1 tab Nicotine (Nicotine Inhaler*) 10 mg INH Q2H PRN PRN Reason: CRAVING Last Admin: 01/21/19 21:43 Dose: 10 mg Nicotine Polacrilex (Nicotine Gum*) 2 mg PO Q2H PRN PRN Reason: CRAVING Last Admin: 01/27/19 15:57 Dose: 2 mg Risperidone (Risperdal-M Tab *) 2 mg PO BID SHIRIN; Protocol Last Admin: 01/27/19 08:06 Dose: 2 mg Risperidone (Risperdal-M Tab *) 2 mg PO Q6H PRN; Protocol PRN Reason: AGITATION Last Admin: 01/27/19 15:58 Dose: 2 mg
[2019-01-28] MEDS: Acetaminophen TAB* 325 MG PO PRN ×2 (08:35→16:52)
[2019-01-28] MEDS: Vitamin THERAPEUTIC TAB PO SCH (08:35)
[2019-01-28] MEDS: risperiDONE-M * 1 MG TAB.ORADIS PO SCH ×2 (08:39→20:26)
[2019-01-28] MEDS: risperiDONE-M * 1 MG TAB.ORADIS PO PRN (18:05)
[2019-01-28] MEDS: diPHENhydraMINE PO* 50 MG PO PRN (20:26)
[2019-01-29] MEDS: Vitamin THERAPEUTIC TAB PO SCH (08:18)
[2019-01-29] MEDS: risperiDONE-M * 1 MG TAB.ORADIS PO SCH ×2 (08:18→20:08)
[2019-01-29] MEDS: Acetaminophen TAB* 325 MG PO PRN ×2 (08:21→13:28)
[2019-01-29] MEDS: risperiDONE-M * 1 MG TAB.ORADIS PO PRN (16:04)
[2019-01-29] MEDS: hydrOXYzine HCL TAB* 50 MG PO PRN (16:05)
[2019-01-29] MEDS: diPHENhydraMINE PO* 50 MG PO PRN (20:07)
[2019-01-30] MEDS: hydrOXYzine HCL TAB* 50 MG PO PRN (01:45)
[2019-01-30] MEDS: risperiDONE-M * 1 MG TAB.ORADIS PO SCH ×2 (08:35→20:07)
[2019-01-30] MEDS: Vitamin THERAPEUTIC TAB PO SCH (08:36)
[2019-01-30] MEDS: Acetaminophen TAB* 325 MG PO PRN (12:45)
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
[2019-01-30] MEDS: diPHENhydraMINE PO* 50 MG PO PRN (20:08)
[2019-01-31] MEDS: Vitamin THERAPEUTIC TAB PO SCH (08:32)
[2019-01-31] MEDS: risperiDONE-M * 1 MG TAB.ORADIS PO SCH ×2 (08:32→20:17)
--- NOTE | 2019-01-31 11:08 | PN ---
BSU: Group Therapy Note - Service Type Service Type: 17124 Group Psychotherapy - Cognitive Behavioral Group Therapy ( CBT):Patient was attentive and participatory in CBT programming this morning, and remained in good behavioral control. Patient expressed positive insights regarding relevant treatment interventions and goals.
--- NOTE | 2019-01-31 14:54 | PN ---
Subjective - Subjective Date of Service: 01/31/19 Service Type: 82224 Hosp care 15 min low complexity Subjective: Pro, who states his name is not CJ, that it was a misunderstanding to call him CJ in the first place, seems to be organized and eager to leave. He is very eager to have control of his life again and makes that clear in a non- threatening but assertive fashion. Assessment - Assessment Clinical Impression: Patient is psychotic with disorganizations of thoughts and behaviors. 29-year- old white man who arrives at the hospital confused, hallucinating, and psychotic with no memory of the situation bringing him to the hospital with a significant history of drug abuse and a stated history of synthetic drug use. Plan - Plan Treatment Plan: Name: ANDRZEJ LOVE Birthdate: 1990 [id number] continue acute intensive psychiatric treatment. convert to 2PC. may decrease to q30min Increase risperidone to 3 mg BID. If he improves, move toward injectable medication. Consider transfer to [facility] and trial of clozapine. Medications: Current Medications Acetaminophen (Tylenol Tab*) 650 mg PO Q4H PRN PRN Reason: PAIN or TEMP > 101 F Last Admin: 01/30/19 12:45 Dose: 650 mg Al Hydrox/Mg Hydrox/Simethicone (Maalox Plus*) 30 ml PO Q4H PRN PRN Reason: INDIGESTION Albuterol (Ventolin Hfa Inhaler*) 2 puff INH Q6H PRN PRN Reason: WHEEZING Last Admin: 01/26/19 16:09 Dose: 2 puff Diphenhydramine HCl (Benadryl Po*) 50 mg PO Q6H PRN PRN Reason: Agitation/anxiety Last Admin: 01/30/19 20:08 Dose: 50 mg Hydroxyzine HCl (Atarax Tab*) 50 mg PO Q4H PRN PRN Reason: anxiety/agitation Last Admin: 01/30/19 01:45 Dose: 50 mg Multivitamins (Theragran Tab*) 1 tab PO DAILY SHIRIN Last Admin: 01/31/19 08:32 Dose: 1 tab Nicotine (Nicotine Inhaler*) 10 mg INH Q2H PRN PRN Reason: CRAVING Last Admin: 01/21/19 21:43 Dose: 10 mg Nicotine Polacrilex (Nicotine Gum*) 2 mg PO Q2H PRN PRN Reason: CRAVING Last Admin: 01/27/19 15:57 Dose: 2 mg Risperidone (Risperdal-M Tab *) 2 mg PO Q6H PRN; Protocol PRN Reason: AGITATION Last Admin: 01/29/19 16:04 Dose: 2 mg Risperidone (Risperdal-M Tab *) 3 mg PO BID SHIRIN; Protocol Last Admin: 01/31/19 08:32 Dose: 3 mg
[2019-01-31] MEDS: Acetaminophen TAB* 325 MG PO PRN (20:17)
[2019-01-31] MEDS: hydrOXYzine HCL TAB* 50 MG PO PRN (20:19)
[2019-01-31] MEDS: diPHENhydraMINE PO* 50 MG PO PRN (20:19)
[2019-01-31] MEDS: Nicotine GUM* 2 MG PO PRN (20:20)
[2019-02-01] MEDS: risperiDONE-M * 1 MG TAB.ORADIS PO SCH (07:50)
[2019-02-01] MEDS: Vitamin THERAPEUTIC TAB PO SCH (07:50)
[2019-02-01 07:52] VITALS: BP 141/79
[2019-02-01] MEDS: Acetaminophen TAB* 325 MG PO PRN (10:51)
[2019-02-01] MEDS: Albuterol HFA INHALER* 8 gm MDI INH PRN (11:07)
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
== END 2019-02-01 11:25 | disposition home or self-care (01) | DRG 775 ==
LOC: ED 14:31 → BSU 23:19
PROVIDERS: ADMIT Psychiatry & Neurology Psychiatry; ATTEND Psychiatry & Neurology Psychiatry
DX: F12.151 Cannabis abuse with psychotic disorder with hallucinations (principal); L03.115 Cellulitis of right lower limb; F31.89 Other bipolar disorder; F17.210 Nicotine dependence, cigarettes, uncomplicated; Z62.810 Personal history of physical and sexual abuse in childhood; F10.21 Alcohol dependence, in remission; F15.21 Other stimulant dependence, in remission
CPT/HCPCS: 36415; 80053; 80061; 80307; 80320; 80329; 81003; 82550; 83036; 84443; 85025; 90853; 99222; 99231; 99232; 99233; 99284; A9270-GY; G0480; J1200; J1630; J2060

== ENCOUNTER 2019-03-02 01:35 | Emergency (ER) | payer SELFPAY ==
[2019-03-02] MEDS ORDERED: Bacitracin OINTMENT* 0.5% 0.5 oz TUBE ONE (02:13)
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
[2019-03-02 02:37] VITALS: BP 131/91
== END 2019-03-02 02:36 ==
LOC: ED 01:35
DX: S61.411A Laceration without foreign body of right hand, initial encounter (principal); W22.8XXA Striking against or struck by other objects, initial encounter; F10.129 Alcohol abuse with intoxication, unspecified; F41.9 Anxiety disorder, unspecified; F32.9 Major depressive disorder, single episode, unspecified; F17.210 Nicotine dependence, cigarettes, uncomplicated; Z91.5 Personal history of self-harm
CPT/HCPCS: 99282; A9270-GY

== ENCOUNTER 2019-06-24 17:37 | Inpatient (IN) | payer OTHER ==
--- NOTE | 2019-06-24 18:01 | ED ---
Psychiatric Complaint - HPI Summary HPI Summary: 29 [address] male presents to [facility] ED via police and EMS for 941. History unattainable from pt due to altered mental status. Police report that they received a call from pt's brother who stated pt was acting bizarre, was punching trees, and fighting ghosts. Police say that when they arrived pt was lying flat on the ground with his hands behind his back ready to be "taken away". Currently pt responds when spoken to, but responses are incoherent and not appropriate. 1809 ED security and staff attempted to change pt into paper scrubs, but pt became verbally combative when trying to change into scrub pants. He was unable to be talked down and began flailing when attempting to change into paper scrubs. Order for benadryl, ativan, and haldol was given. - History Of Current Complaint Chief Complaint: EDMentalHealth Time Seen by Provider: 06/24/19 17:59 Hx Obtained From: EMS Hx From Patient Unobtainable Due To: Altered Mental Status - Allergies/Home Medications Allergies/Adverse Reactions: Allergies Allergy/AdvReac Type Severity Reaction Status Date / Time No Known Allergies Allergy Verified 01/19/19 14:33 PMH/Surg Hx/FS Hx/Imm Hx Musculoskeletal History: Denies: Hx Arthritis, Hx Back Problems Sensory History: Reports: Hx Contacts or Glasses Denies: Hx Hearing Aid Opthamlomology History: Reports: Hx Contacts or Glasses Neurological History: Reports: Hx Headaches - hx of concussions x 2 loss of consciousness Psychiatric History: Reports: Hx Anxiety, Hx Depression, Hx Post Traumatic Stress Disorder, Hx Inpatient Treatment - 2012 [facility], Hx [facility], Hx Bipolar Disorder, Hx Suicide Attempt, Hx of Violent Episodes Against Others, Hx Substance Abuse Denies: Hx Eating Disorder - Surgical History Surgical History: Unable to Obtain/Confirm Infectious Disease History: Unable to Obtain/Confirm Infectious Disease History: Denies: Traveled Outside the [place] in Last 30 Days - Family History Known Family History: Positive: Hypertension - Social History Alcohol Use: None Alcohol Amount: 1 twelve pack , twice a day Hx Substance Use: Yes Substance Use Type: Reports: Marijuana, Synthetic Drugs, Other Substance Use Comment - Amount & Last Used: opioids Hx Tobacco Use: Yes Smoking Status (MU): Current Every Day Smoker Type: Cigarettes Have You Smoked in the Last Year: Yes Review of Systems Constitutional: Negative Eyes: Negative ENT: Negative Cardiovascular: Negative Respiratory: Negative Gastrointestinal: Negative Genitourinary: Negative Musculoskeletal: Negative Skin: Negative Neurological: Negative Positive: Other - Incoherent inappropriate responses All Other Systems Reviewed And Are Negative: Yes Physical Exam - Summary Physical Exam Summary: GENERAL: NAD. Sitting calmly on stretcher until attempting to examine or change pt clothing. SKIN: No rashes, sores, or open wounds. HEENT: Head: AT/NC. No racoon eyes or gan's sign. Eyes: PERRLA. EOM intact. Ears: Hearing grossly normal. NECK: Supple. No lymphadenopathy. FROM CHEST: CTAB. No r/r/w. No accessory muscle use. Breathing comfortably and in no distress. CV: RRR. Without m/r/g. Pulses intact. Brisk cap refill. ABDOMEN: Soft. No distention or guarding. Bowel sounds present MSK: FROM and 5/5 strength throughout. No edema. NEURO: Unable to assess due to pt condition PSYCH: Incoherent and inappropriate responses to questions or statements. Triage Information Reviewed: Yes Vital Signs On Initial Exam: Initial Vitals Temp Pulse Resp BP Pulse Ox 98.4 F 87 18 135/93 99 06/24/19 17:41 06/24/19 17:41 06/24/19 17:41 06/24/19 17:41 06/24/19 17:41 Vital Signs Reviewed: Yes Diagnostics - Vital Signs Vital Signs Temp Pulse Resp BP Pulse Ox 06/24/19 17:41 98.4 F 87 18 135/93 99 - Laboratory Lab Results: Laboratory Tests 06/24/19 06/24/19 19:55 19:55 WBC 7.3 RBC 5.13 Hgb 17.0 Hct 48 MCV 93 MCH 33 H MCHC 36 RDW 12 Plt Count 228 MPV 6.9 L Neut % (Auto) 69.1 Lymph % (Auto) 21.0 Hardee % (Auto) 8.7 Eos % (Auto) 0.8 Baso % (Auto) 0.4 Absolute Neuts (auto) 5.1 Absolute Lymphs (auto) 1.5 Absolute Monos (auto) 0.6 Absolute Eos (auto) 0.1 Absolute Basos (auto) 0.0 Absolute Nucleated RBC 0.0 Nucleated RBC % 0.0 Sodium 137 Potassium 3.4 L Chloride 103 Carbon Dioxide 25 Anion Gap 9 BUN 14 Creatinine 0.99 Est GFR ( Amer) 109.7 Est GFR (Non-Af Amer) 90.7 BUN/Creatinine Ratio 14.1 Glucose 97 Calcium 9.9 Total Bilirubin 2.60 H Direct Bilirubin 0.50 H Indirect Bilirubin 2.1 H AST 44 H ALT 34 Alkaline Phosphatase 99 Total Protein 7.3 Albumin 4.9 Globulin 2.4 Albumin/Globulin Ratio 2.0 Amylase 11 L Lipase < 10 L TSH 1.64 Salicylates < 2.50 Acetaminophen < 15 Serum Alcohol < 10 Result Diagrams: 06/24/19 19:55 06/24/19 19:55 Lab Statement: Any lab studies that have been ordered have been reviewed, and results considered in the medical decision making process. - Radiology ankle Radiology Interpretation Completed By: ED Physician Summary of Radiographic Findings: Slightly widened mortise on 3rd view, likely due to positioning. No acute fx foot Radiology Interpretation Completed By: ED Physician Summary of Radiographic Findings: No fx - CT brain CT Interpretation Completed By: Radiologist Summary of CT Findings: FINDINGS: Limitations: Image quality is degraded by motion and extensive beam hardening artifact. Brain: No acute intracranial hemorrhage or extraaxial collection identified. Baldwin/white differentiation is maintained with no evidence of acute infarct. Ventricles: Normal configuration. No hydrocephalus. Bones/joints: No acute fracture. Sinuses: Mucosal thickening is present in the right maxillary and bilateral ethmoid sinuses. No air-fluid levels. Mastoid air cells: No mastoid effusion. Soft tissues: Normal. IMPRESSION : 1. No acute intracranial findings. 2. Limited study as above. Re-Evaluation - Re-Evaluation First Eval Re-Evaluation Time: 01:02 Change: Improved Comment: Pt resting comfortably Course/Dx - Course Course Of Treatment: Discussed elevated Tbili with Dr. Ashford - no further workup at this time. Pt medically cleared for mental health eval. Sign out pending mental health eval - Differential Dx/Clinical Impression Provider Diagnosis: Psychosis Discharge ED - Sign-Out/Discharge Documenting (check all that apply): Sign-Out Patient Signing out patient TO: Silvano Ashford - Discharge Plan Referrals: No Primary Care Phys,NOPCP [Primary Care Provider] -
[2019-06-24] MEDS ORDERED: LORazepam INJ* 2 MG/ML 1 ML VIAL IM ONE (18:18)
[2019-06-24] MEDS ORDERED: diPHENhydraMINE IV* 50 MG/ML 1 ml VIAL (BENADRYL) IM ONE (18:18)
[2019-06-24] MEDS ORDERED: Haloperidol INJ IV/IM* 5 MG/ML AMP IM ONE (18:18)
[2019-06-24] MEDS ORDERED: Lorazepam PYXIS KEY PRN (18:18)
[2019-06-24] MEDS ORDERED: Lorazepam PYXIS KEY ONE (18:21)
[2019-06-24 20:14] LABS: ABS Eosinophils 0.1 10^3/ul (0-0.6); ABS Lymphocytes 1.5 10^3/ul (1.0-4.8); ABS Monocytes 0.6 10^3/ul (0-0.8); ABS Neutrophils 5.1 10^3/ul (1.5-7.7); Eosinophil % 0.8 %; Hematocrit 48 % (42-52); Mean Corpuscular HGB Conc 36 g/dL (31-36); Mean Corpuscular Hemoglobin 33 pg (27-31); Mean Corpuscular Volume 93 fL (80-94); Mean Platelet Volume 6.9 fL (7.4-10.4); Platelet Count 228 10^3/uL (150-450); Red Blood Count 5.13 10^6 /uL (4.18-5.48); Red Cell Distribution Width 12 % (10-15); White Blood Count 7.3 10^3/uL (3.5-10.8)
[2019-06-24 20:22] LABS: ALT 34 U/L (7-52); AST 44 U/L (13-39); Albumin 4.9 g/dL (3.2-5.2); Alkaline Phosphatase 99 U/L (34-104); Anion Gap 9 mmol/L (2-11); BUN/Creatinine Ratio 14.1 (8-20); Blood Urea Nitrogen 14 mg/dL (6-24); CO2 Carbon Dioxide 25 mmol/L (22-32); Calcium 9.9 mg/dL (8.6-10.3); Chloride 103 mmol/L (101-111); EGFR African American 109.7 (>60); EGFR Non-African American 90.7 (>60); Globulin 2.4 g/dL (2-4); Glucose 97 mg/dL (70-100); Potassium 3.4 mmol/L (3.5-5.0); Sodium 137 mmol/L (135-145); Total Protein 7.3 g/dL (6.4-8.9)
[2019-06-24] MEDS ORDERED: Potassium Chlor TAB* 20 MEQ TAB.ER PO ONE (20:28)
[2019-06-24 21:13] LABS: Acetaminophen < 15 mcg/mL; Alcohol < 10 mg/dL (<10); Salicylate < 2.50 mg/dL (<30)
[2019-06-24 21:23] LABS: Indirect Bilirubin 2.1 mg/dL (0.3-1.0)
[2019-06-24 21:27] LABS: TSH (Thyroid Stimulating Horm) 1.64 mcIU/mL (0.34-5.60)
[2019-06-24 21:52] LABS: Amylase 11 U/L (29-103)
[2019-06-25 03:07] LABS: Urine Appearance Cloudy; Urine Bacteria Absent (Absent); Urine Bilirubin Negative (Negative); Urine Blood Negative (Negative); Urine Color Amber; Urine Glucose Negative (Negative); Urine Ketones 1+ (Negative); Urine Nitrite Negative (Negative); Urine Protein 1+(30 mg/dL) (Negative); Urine Red Blood Cell Absent (Absent); Urine Specific Gravity 1.029 (1.010-1.030); Urine Urobilinogen Negative (Negative); Urine White Blood Cell Absent (Absent)
[2019-06-25 03:09] LABS: Urine Benzodiazepine Screen None Detected (None Detect); Urine Opiates Screen None Detected (None Detect)
--- NOTE | 2019-06-25 04:22 | ED ---
Progress - Progress Note Progress Note: Pt is a sign out from Dr. Becker pending and E. The pt has departed. - Consult/PCP Time Called: 22:50 Re-Evaluation - Re-Evaluation First Eval Re-Evaluation Time: 01:02 Change: Improved Comment: Pt resting comfortably Course/Dx - Course Course Of Treatment: Discussed elevated Tbili with Dr. Ashford - no further workup at this time. Pt medically cleared for mental health eval. Sign out pending mental health eval. Pt is a sign out from Dr. Becker pending and E. The pt has departed. - Diagnoses Provider Diagnoses: Psychosis Discharge ED - Sign-Out/Discharge Documenting (check all that apply): Patient Departure, Receiving Sign-Out Receiving patient FROM: Benoit Becker - Pt is a sign out from Dr. Becker pending . Patient Received Moderate/Deep Sedation with Procedure: No - Discharge Plan Condition: Stable Disposition: PSYCHIATRIC FACILITY-[facility] - Billing Disposition and Condition Condition: STABLE Disposition: Psychiatric Facility [facility] - Attestation Statements Document Initiated by Galloibe: Yes Documenting Scribe: Gunner Davis Provider For Whom Ishan is Documenting (Include Credential): Silvano Ashford MD Scribe Attestation: IGunner, scribed for Silvano Ashford MD on 06/27/19 at 1224. Scribe Documentation Reviewed: Yes Provider Attestation: The documentation as recorded by the Gunner klein accurately reflects the service I personally performed and the decisions made by me, Silvano Ashford MD Status of Scribe Document: Viewed
[2019-06-25] MEDS ORDERED: Al Hydrox/Mg Hydrox/Simet LIQ* 30 ML UDC PO PRN (06:31)
--- NOTE | 2019-06-25 07:11 | ED ---
Progress - Progress Note Progress Note: This patient was signed out from Dr. Steele to Dr. Flores at shift change at 0700 on 06/25/19, pending disposition, awaiting mental health evaluation. _ reveals _. The patients condition is _stable and will be _discharged to home with Dx of _. - Consult/PCP Time Called: 22:50 Re-Evaluation - Re-Evaluation First Eval Re-Evaluation Time: 01:02 Change: Improved Comment: Pt resting comfortably Course/Dx - Course Course Of Treatment: Discussed elevated Tbili with Dr. Ashford - no further workup at this time. Pt medically cleared for mental health eval. Sign out pending mental health eval. Pt is a sign out from Dr. Becker pending UA and MHE. Pt will be a sign out to Dr. Flores at the 06/25/2019 0700 shift change pending MHE. - Diagnoses Provider Diagnoses: Psychosis - Attestation Statements Document Initiated by Scribe: Yes Documenting Scribe: Kiah Dash Provider For Whom Scribe is Documenting (Include Credential): Dr. Kenji Flores MD Scribe Attestation: I, Kiah Dash, scribed for Dr. Kenji Flores MD on 06/25/19 at 0711.
[2019-06-25] MEDS: Vitamin THERAPEUTIC TAB PO SCH (08:22)
[2019-06-25] MEDS ORDERED: risperiDONE-M * 1 MG TAB.ORADIS ONE (09:18)
[2019-06-25] MEDS ORDERED: Albuterol HFA INHALER* 8 gm MDI INH PRN (09:34)
[2019-06-25] MEDS ORDERED: clonazePAM TAB(*) 0.5 MG PO SCH (09:35)
[2019-06-25] MEDS ORDERED: Topiramate TAB(*) 25 MG PO SCH (09:35)
[2019-06-25] MEDS ORDERED: CloZAPine TAB* 100 MG TAB PO SCH ×2 (09:35→21:00)
[2019-06-25] MEDS ORDERED: Famotidine TAB* 20 MG PO SCH (09:35)
[2019-06-25] MEDS ORDERED: Sertraline* 100 MG TAB PO SCH (09:35)
[2019-06-25] MEDS: risperiDONE-M * 1 MG TAB.ORADIS PO SCH ×2 (10:05→20:44)
[2019-06-25] MEDS ORDERED: LORazepam TAB(*) 1 MG ONE (11:50)
[2019-06-25] MEDS ORDERED: diPHENhydraMINE PO* 25 MG ONE (11:51)
[2019-06-25] MEDS ORDERED: Haloperidol TAB* 5 MG ONE (11:51)
[2019-06-25] MEDS ORDERED: diPHENhydraMINE PO* 50 MG PO ONE (12:00)
[2019-06-25] MEDS ORDERED: LORazepam TAB(*) 1 MG PO ONE (12:00)
[2019-06-25] MEDS ORDERED: Haloperidol TAB* 5 MG PO ONE (12:00)
[2019-06-25] MEDS ORDERED: Haloperidol TAB* 5 MG PO PRN (15:34)
--- NOTE | 2019-06-25 15:51 | PN ---
Progress Note - Progress Note Date of Service: 06/25/19 Note: Patient was seen last evening Admitted to [facility] Overnight read shows fracture Placed a boot on patient per Dr. eng in [facility] Ortho states they will round on him starting tomorrow
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
[2019-06-25] MEDS: Acetaminophen TAB* 325 MG PO PRN (19:43)
[2019-06-26] MEDS: risperiDONE-M * 1 MG TAB.ORADIS PO SCH (07:57)
[2019-06-26] MEDS: Vitamin THERAPEUTIC TAB PO SCH (08:00)
[2019-06-26] MEDS ORDERED: Cariprazine 4.5 MG CAPSULE PO SCH (09:00)
[2019-06-26] MEDS: LORazepam TAB(*) 1 MG PO PRN ×2 (09:34→16:24)
[2019-06-26] MEDS: Acetaminophen TAB* 325 MG PO PRN ×2 (09:35→21:48)
[2019-06-26] MEDS: Ibuprofen TAB* 600 MG PO PRN ×2 (12:43→21:48)
--- NOTE | 2019-06-26 12:59 | PN ---
Progress Note - Progress Note Date of Service: 06/26/19 Note: See dictated report for full details. Patient has a right medial malleolus fracture. Xrays with question of mortise joint widening, ordered stress views though discussed with medical transcription radiology, this is not a typical test radiology performs in house. Patient has no proximal fibular pain. He will be NWB RLE in a boot and follow up outpatient.
--- NOTE | 2019-06-26 13:36 | CONS ---
CONSULTATION REPORT: DATE OF CONSULT: 06/26/19 ATTENDING ORTHOPEDIC PROVIDER: Dr. Terrance Pavon. CHIEF COMPLAINT: Right ankle medial malleolus fracture. HISTORY OF PRESENT ILLNESS: The patient is a 29-year-old male who is admitted to the adult inpatient psychiatric unit, who is noted to have a right ankle medial malleolus fracture. The patient reports that this injury occurred while he was standing on a tree doing willow chi, he fell roughly 5 feet onto the ankle. He denies pain anywhere aside from the medial ankle. He is not in any pain at rest. Pain is moderate in severity, sharp in nature with movement and better with rest. He has been given walking boot, which he has been intermittently compliant with wearing, states that it does not hurt when he walks without it, so he has not been wearing the boot at all times. PAST MEDICAL HISTORY: 1. Bipolar disorder. 2. Substance abuse. FAMILY HISTORY: Noncontributory. SOCIAL HISTORY: History of drug abuse including opiates, analgesics, benzodiazepines, alcohol. REVIEW OF SYSTEMS: Negative for fever, chills. Musculoskeletal: Negative for extremity pain aside from occasional nagging right ankle pain. Denies any numbness or tingling. Skin: Reports no lacerations aside from the laceration in the plantar aspect of his right foot. PHYSICAL EXAM: Vital Signs: Temperature 98.3, pulse rate 105, respiratory rate 18, oxygen saturation 100%, blood pressure 108/66. General: Appears well , in no acute distress. Respiratory: Normal rate and effort of breathing. Musculoskeletal: Moves bilateral upper extremities and left lower extremity. Skin envelop intact. Nontender to palpation. Moves all joints well. Right lower extremity has fracture boot in place. + edema and mild ecchymosis inferior to medial mal. Tender to palpation only over the medial malleolus. There is no tenderness over the lateral malleolus or proximal fibula, no tenderness otherwise throughout the lower leg or foot. Able to flex and extend at the digits. Minimal range of motion of the ankle due to pain. No pain with knee or hip flexion and extension. Neuro: Sensation intact to light touch throughout bilateral lower extremities. Vascular: DP 2+ bilateral lower extremities. Capillary refill less than 2 seconds distally. DIAGNOSTIC STUDIES/LAB DATA: Right ankle x-ray: Fracture of the medial malleolus, nondisplaced. ASSESSMENT: Right ankle nondisplaced medial malleolus fracture. There is question of mortise joint widening on the first set of xrays. Stress films unable to be obtained in house. PLAN: NWB RLE in fracture boot and follow up as an outpatient with Dr Pavon next week. Discussed case with Dr Pavon, he has reviewed xrays and agrees with the plan. KERLINE PEACE [id number]/CPS #: [id number] [facility] MEDICAL CENTERPaula
--- NOTE | 2019-06-26 15:35 | PN ---
Subjective - Subjective Date of Service: 06/26/19 Service Type: 82830 Hosp care 15 min low complexity Subjective: Pro is disorganized and delusional. He appears physically well, with the exception of his right foot/ankle (he was encouraged to wear his boot), and wants to have a conversation. When we discuss why he is hospitalized, he states that he was hallucinating because of "the NO2 in the house of fun." He also stated, "Only the blind can see the blind, know what I mean?" His further explanation was "please reference my record." Pro was stabilized here in December on a total of 6 mg of Risperdal. We will reinstate this, anticipating that we will urge him to use the injectable Invega Sustenna as soon as possible. Objective - General Observations Appearance: Disheveled, Unkempt Appears Stated Age: Yes Stature: Overweight Posture: WNL Eye Contact: Intermittent Behavior/Activity: Peculiar - Interaction Observations Attitude Towards Examiner: Cooperative, Confused Stated Mood: Euthymic Affect: Incongruent Speech Pattern/Tone: Clear, Rambling Thought Process: Disorganized Thought Content: Grandiose Hallucination Type: Auditory Delusion Type: Grandeur - Cognitive Function Orientation: A&O x 4 Level of Consciousness: Awake, Alert Cognition: Impaired Cognition, Impaired Attention/Concentration, Impaired Ability to Abstract Estimated Intelligence: Normal Insight: Difficulty Acknowledging Presence of Psyciatric Problems Judgment Within Normal Limits: No Ability to Make Reasonable Decisions: Serverely Impaired - Medication Compliance Cooperative with Inpatient Medication Regimen: Yes - Group Participation Participates in Group Activities: Partial Assessment - Assessment Merits Inpatient Hospitalization: For Immediate Safety Inpatient DSM-V Dx: F20.9 Clinical Impression: Pro is a 29-year-old man with schizophrenia who has been hospitalized here several times for psychosis who comes to the hospital by 9.41 and is here on a 9.39 status following his odd behavior of talking to himself and being outside in his underclothes and fighting with invisible enemies. He remains disorganized. Plan - Plan Treatment Plan: Name: ANDRZEJ LOVE Birthdate: 1990 [id number] Restart Pro on Risperdal 3 mg BID with the plan to use Invega Sustenna. Continued Medication Management: Continue Outpt Medication Medications: Current Medications Acetaminophen (Tylenol Tab*) 650 mg PO Q4H PRN PRN Reason: PAIN or TEMP > 101 F Last Admin: 06/26/19 09:35 Dose: 650 mg Al Hydrox/Mg Hydrox/Simethicone (Maalox Plus*) 30 ml PO Q4H PRN PRN Reason: INDIGESTION Albuterol (Ventolin Hfa Inhaler*) 2 puff INH Q6H PRN PRN Reason: SHORTNESS OF BREATH Diphenhydramine HCl (Benadryl Po*) 50 mg PO Q6H PRN PRN Reason: AGITATION / ANXIETY Haloperidol (Haldol Tab*) 5 mg PO Q6H PRN PRN Reason: AGITATION/ANXIETY Ibuprofen (Motrin Tab*) 600 mg PO Q6H PRN PRN Reason: PAIN - MILD Last Admin: 06/26/19 12:43 Dose: 600 mg Lorazepam (Ativan Tab(*)) 2 mg PO Q6H PRN PRN Reason: AGITATION / ANXIETY Last Admin: 06/26/19 09:34 Dose: 2 mg Miscellaneous (Ativan Pyxis Denton) 1 ea N/A .ATIVAN IV DENTON PRN PRN Reason: PYXIS DENTON Multivitamins (Theragran Tab*) 1 tab PO DAILY [facility] Last Admin: 06/26/19 08:00 Dose: Not Given Risperidone (Risperdal-M Tab *) 3 mg PO BID [facility] Last Admin: 06/26/19 07:57 Dose: 3 mg Risperidone (Risperdal*) 3 mg PO BID [facility] - Discharge Plan Discharge Plan: Outpatient Follow Up
[2019-06-26] MEDS: risperiDONE TAB* 3 MG PO SCH (21:47)
[2019-06-27] MEDS: Ibuprofen TAB* 600 MG PO PRN ×2 (04:28→13:42)
[2019-06-27 08:01] LABS: HDL Cholesterol 44.6 mg/dL
[2019-06-27] MEDS: Vitamin THERAPEUTIC TAB PO SCH (08:16)
[2019-06-27] MEDS: risperiDONE TAB* 3 MG PO SCH ×2 (08:16→20:56)
[2019-06-27] MEDS: Acetaminophen TAB* 325 MG PO PRN (08:50)
--- NOTE | 2019-06-27 15:19 | PN ---
Progress Note - Progress Note Date of Service: 06/27/19 SOAP: Subjective: [] Pt seen today, his ankle hurts with WB or ROM but is comfortable at rest. Objective: []Gen: NAD RLE: Boot in place. Right ankle tender over medial malleolus only. No tenderness of the lower leg or foot otherwise. NVI distally. Assessment: []Right medial malleolus fracture. Due to xrays showing possible mortise widening cannot rule out syndesmotic injury Plan: []NWB, fracture boot. Crutches ordered F/U Dr Pavon when discharged from hospital
--- NOTE | 2019-06-27 20:46 | PN ---
Subjective - Subjective Date of Service: 06/27/19 Service Type: [id number] Hosp care 15 min low complexity Subjective: Pro is behaving bizarrely. He is delusional with grandiose thoughts, asserting that there are codes in the newspaper, that he will jump out of an airplane [facility] [employer] so that he can learn to jump from a helicopter to meet his daughter again so that she'll believe he is a superhero, that he will be a rap star given the opportunity. He is walking on his broken ankle, although he has been instructed to use a walker or a wheelchair, clearly showing little insight into what will serve him well in the future. He also states he took 5 1/8-ounce portions of mushrooms on the day he was admitted, which may account for his "doing willow chi in a tree." Objective - General Observations Appearance: Disheveled Appears Stated Age: Yes Stature: Overweight Posture: WNL Eye Contact: Average Behavior/Activity: Peculiar - Interaction Observations Attitude Towards Examiner: Cooperative, Confused, Defensive Stated Mood: Dysphoric, Irritable, Anxious Affect: Labile Speech Pattern/Tone: Clear, Pressured Thought Process: Incoherent, Disorganized Perception: WNL Thought Content: Preoccupation/Ruminations, Grandiose Hallucination Type: Denies Delusion Type: Grandeur, Tenriism - Cognitive Function Orientation: A&O x 4 Level of Consciousness: Awake, Alert Cognition: Impaired Cognition, Impaired Attention/Concentration, Impaired Ability to Abstract, Impaired Reading Estimated Intelligence: Normal Insight: Difficulty Acknowledging Presence of Psyciatric Problems Judgment Within Normal Limits: No Ability to Make Reasonable Decisions: Serverely Impaired - Medication Compliance Cooperative with Inpatient Medication Regimen: Yes - Group Participation Participates in Group Activities: Partial Assessment - Assessment Merits Inpatient Hospitalization: For Immediate Safety Inpatient DSM-V Dx: F20.9 Clinical Impression: Pro is a 29-year-old man with schizophrenia who has been hospitalized here several times for psychosis who comes to the hospital by 9.41 and is here on a 9.39 status following his odd behavior of talking to himself and being outside in his underclothes and fighting with invisible enemies. He remains disorganized. Plan - Plan Treatment Plan: Name: CELIOKRISTICHELI Sayra KATE Birthdate: 1990 [id number] Restart Pro on Risperdal 3 mg BID with the plan to use Invega Sustenna. 06/27/19 rPo will remain hospitalized until some of his delusions clear up. His behavior would not allow him to be safe in the community at this time. Continued Medication Management: Different Medication Medications: Current Medications Acetaminophen (Tylenol Tab*) 650 mg PO Q4H PRN PRN Reason: PAIN or TEMP > 101 F Last Admin: 06/27/19 08:50 Dose: 650 mg Al Hydrox/Mg Hydrox/Simethicone (Maalox Plus*) 30 ml PO Q4H PRN PRN Reason: INDIGESTION Albuterol (Ventolin Hfa Inhaler*) 2 puff INH Q6H PRN PRN Reason: SHORTNESS OF BREATH Diphenhydramine HCl (Benadryl Po*) 50 mg PO Q6H PRN PRN Reason: AGITATION / ANXIETY Ibuprofen (Motrin Tab*) 600 mg PO Q6H PRN PRN Reason: PAIN - MILD Last Admin: 06/27/19 13:42 Dose: 600 mg Lorazepam (Ativan Tab(*)) 1 mg PO Q6H PRN PRN Reason: AGITATION / ANXIETY Miscellaneous (Ativan Pyxis Denton) 1 ea N/A .ATIVAN IV DENTON PRN PRN Reason: PYXIS DENTON Multivitamins (Theragran Tab*) 1 tab PO DAILY [facility] Last Admin: 06/27/19 08:16 Dose: 1 tab Risperidone (Risperdal*) 3 mg PO BID [facility] Last Admin: 06/27/19 08:16 Dose: 3 mg Risperidone (Risperdal-M Tab *) 1 mg PO Q6H PRN; Protocol PRN Reason: AGITATION
[2019-06-28] MEDS: Acetaminophen TAB* 325 MG PO PRN ×2 (05:16→14:23)
[2019-06-28] MEDS: Ibuprofen TAB* 600 MG PO PRN (08:38)
[2019-06-28] MEDS: risperiDONE TAB* 3 MG PO SCH ×2 (08:38→22:32)
[2019-06-28] MEDS: Vitamin THERAPEUTIC TAB PO SCH (08:39)
[2019-06-28] MEDS ORDERED: risperiDONE TAB* 2 MG PO SCH (15:00)
--- NOTE | 2019-06-28 16:17 | PN ---
BSU: Group Therapy Note - Service Type Service Type: [id number] Group Psychotherapy - Medication Education Group: Patient attended group and presented with flat affect that did not vary with discussion. Although responsive to direct prompts to respond to questions, patient did not engage in spontaneous conversation.
[2019-06-28] MEDS: diPHENhydraMINE PO* 50 MG PO PRN (18:14)
[2019-06-28] MEDS: risperiDONE-M * 1 MG TAB.ORADIS PO PRN (18:14)
[2019-06-28] MEDS: LORazepam TAB(*) 1 MG PO PRN (18:15)
--- NOTE | 2019-06-28 20:06 | PN ---
Subjective - Subjective Date of Service: 06/28/19 Service Type: [id number] Hosp care 15 min low complexity Subjective: Today Pro states with deceptive clarity that he lied about everything he said yesterday to get out of the hospital faster. He says he's not interested in cryptography anymore and that he didn't take mushrooms. 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 Information from other staff is that he has not improved from yesterday. Considering his use of his broken ankle (no use of walker, minimal use of wheelchair, and inappropriate use of boot), he continues to show no insight into what will preserve his wellbeing. Pro also has difficulty remaining in control around 1600 daily. Objective - General Observations Appearance: Neat Appears Stated Age: Yes Stature: Overweight Posture: WNL Eye Contact: Average Behavior/Activity: Peculiar - Interaction Observations Attitude Towards Examiner: Cooperative, Defensive Stated Mood: Dysphoric, Anxious Affect: Full Speech Pattern/Tone: Clear Thought Process: Disorganized Perception: WNL Thought Content: Preoccupation/Ruminations, Grandiose Hallucination Type: Denies Delusion Type: Grandeur, Latter-Day - Cognitive Function Orientation: A&O x 4 Level of Consciousness: Awake, Alert Cognition: Impaired Cognition, Impaired Attention/Concentration Estimated Intelligence: Normal Insight: Difficulty Acknowledging Presence of Psyciatric Problems Judgment Within Normal Limits: No Ability to Make Reasonable Decisions: Serverely Impaired - Medication Compliance Cooperative with Inpatient Medication Regimen: Yes - Group Participation Participates in Group Activities: Partial Assessment - Assessment Inpatient DSM-V Dx: F20.9 Clinical Impression: Pro is a 29-year-old man with schizophrenia who has been hospitalized here several times for psychosis who comes to the hospital by 9.41 and is here on a 9.39 status following his odd behavior of talking to himself and being outside in his underclothes and fighting with invisible enemies. He remains disorganized. Plan - Plan Treatment Plan: Name: ANDRZEJ LOVE Birthdate: 1990 [id number] Restart Pro on Risperdal 3 mg BID with the plan to use Invega Sustenna. 06/28/19 Increase risperidone in afternoon to avoid consistent "meltdown" around 1600 also to continue to clear his thoughts. Continued Medication Management: Different Medication Medications: Current Medications Acetaminophen (Tylenol Tab*) 650 mg PO Q4H PRN PRN Reason: PAIN or TEMP > 101 F Last Admin: 06/28/19 14:23 Dose: 650 mg Al Hydrox/Mg Hydrox/Simethicone (Maalox Plus*) 30 ml PO Q4H PRN PRN Reason: INDIGESTION Last Admin: 06/28/19 05:15 Dose: 30 ml Albuterol (Ventolin Hfa Inhaler*) 2 puff INH Q6H PRN PRN Reason: SHORTNESS OF BREATH Diphenhydramine HCl (Benadryl Po*) 50 mg PO Q6H PRN PRN Reason: AGITATION / ANXIETY Last Admin: 06/28/19 18:14 Dose: 50 mg Ibuprofen (Motrin Tab*) 600 mg PO Q6H PRN PRN Reason: PAIN - MILD Last Admin: 06/28/19 08:38 Dose: 600 mg Lorazepam (Ativan Tab(*)) 1 mg PO Q6H PRN PRN Reason: AGITATION / ANXIETY Last Admin: 06/28/19 18:15 Dose: 1 mg Miscellaneous (Ativan Pyxis Denton) 1 ea N/A .ATIVAN IV DENTON PRN PRN Reason: PYXIS DENTON Multivitamins (Theragran Tab*) 1 tab PO DAILY [facility] Last Admin: 06/28/19 08:39 Dose: 1 tab Risperidone (Risperdal*) 3 mg PO BID [facility] Last Admin: 06/28/19 08:38 Dose: 3 mg Risperidone (Risperdal-M Tab *) 1 mg PO Q6H PRN; Protocol PRN Reason: AGITATION Last Admin: 06/28/19 18:14 Dose: 1 mg Risperidone (Risperdal*) 2 mg PO 1500 [facility] - Discharge Plan Discharge Plan: Outpatient Follow Up
[2019-06-29] MEDS: Ibuprofen TAB* 600 MG PO PRN ×2 (08:24→20:35)
[2019-06-29] MEDS: Vitamin THERAPEUTIC TAB PO SCH (08:24)
[2019-06-29] MEDS: Acetaminophen TAB* 325 MG PO PRN ×2 (08:25→12:51)
[2019-06-29] MEDS: risperiDONE TAB* 3 MG PO SCH ×3 (08:28→20:32)
--- NOTE | 2019-06-29 11:35 | PN ---
BSU: Group Therapy Note - Service Type Service Type: [id number] Group Psychotherapy - CBT Group Note: Werner was able to attend group and remain throughout today. He denied having consumed psychedelic mushrooms, stating that "it was something I said to get out of here ". Regardless, he was able to track conversation appropriately and engage in a coherent fashion today. He continues to have poor insight regarding treatment for his fractured ankle, but complained of pain today.
[2019-06-29] MEDS: risperiDONE TAB* 2 MG PO SCH (15:14)
[2019-06-29] MEDS: Aspirin TAB* 325 MG PO SCH (17:16)
[2019-06-29] MEDS: diPHENhydraMINE PO* 50 MG PO PRN (18:06)
[2019-06-29] MEDS: LORazepam TAB(*) 1 MG PO PRN (18:07)
[2019-06-29] MEDS: risperiDONE-M * 1 MG TAB.ORADIS PO PRN (18:07)
--- NOTE | 2019-06-29 21:00 | PN ---
Subjective - Subjective Date of Service: 06/29/19 Service Type: [id number] Hosp care 15 min low complexity Subjective: Pro remains disorganized. It was discussed in treatment team that he has not recently in our view returned to his past baseline. His assertion two days ago that he ate 5/8 of on ounce of mushrooms is troubling as he has not begun to clear up yet. Medications will continue. Pro also has a fractured ankle and has been declining to wear his boot or use the walker provided for him by physical therapy. Although he has been instructed in how to use the walker at least twice, he would prefer to use crutches. With the acuity of the unit, crutches are a less than ideal option, particularly when he has the good option of using the walker. I contacted Graciela Matt regarding putting a cast on Por and having him use the walker. She is going to pursue that option. Objective - General Observations Appearance: Neat Appears Stated Age: Yes Stature: Overweight Posture: WNL Eye Contact: Intermittent Behavior/Activity: Peculiar - Interaction Observations Attitude Towards Examiner: Cooperative, Anxious Stated Mood: Dysphoric, Anxious Affect: Blunted Speech Pattern/Tone: Clear, Rambling Thought Process: Goal Directed, Disorganized Perception: WNL Thought Content: Preoccupation/Ruminations, Grandiose Hallucination Type: Denies Delusion Type: Grandeur - Cognitive Function Orientation: A&O x 4 Level of Consciousness: Awake, Alert Cognition: Impaired Cognition, Impaired Attention/Concentration, Impaired Ability to Abstract, Impaired Fund of Knowledge Estimated Intelligence: Normal Insight: Difficulty Acknowledging Presence of Psyciatric Problems Judgment Within Normal Limits: No Ability to Make Reasonable Decisions: Serverely Impaired - Medication Compliance Cooperative with Inpatient Medication Regimen: Yes - Group Participation Participates in Group Activities: Partial Assessment - Assessment Merits Inpatient Hospitalization: For Immediate Safety, For Discharge Planning Inpatient DSM-V Dx: F20.9 Clinical Impression: Pro is a 29-year-old man with schizophrenia who has been hospitalized here several times for psychosis who comes to the hospital by 9.41 and is here on a 9.39 status following his odd behavior of talking to himself and being outside in his underclothes and fighting with invisible enemies. He remains disorganized , likely in the wake of his use of hallucination-inducing mushrooms. Plan - Plan Treatment Plan: Name: ANDRZEJ LOVE Birthdate: 1990 [id number] Restart Pro on Risperdal 3 mg BID with the plan to use Invega Sustenna. 06/28/19 Increase risperidone in afternoon to avoid consistent "meltdown" around 1600 also to continue to clear his thoughts. 06/29/19 Consider using Invega Sustenna, which has not yet been broached as he has shown no improvement. He remains unsafe and unable to care for himself adequately. His behavior is not consistent with being able to maintain an appropriate relationship with others; further, his outbursts in the outpatient setting would likely result in his return to the hospital or to be incarcerated. Continued Medication Management: Different Medication Medications: Current Medications Acetaminophen (Tylenol Tab*) 650 mg PO Q4H PRN PRN Reason: PAIN or TEMP > 101 F Last Admin: 06/29/19 12:51 Dose: 650 mg Al Hydrox/Mg Hydrox/Simethicone (Maalox Plus*) 30 ml PO Q4H PRN PRN Reason: INDIGESTION Last Admin: 06/28/19 05:15 Dose: 30 ml Albuterol (Ventolin Hfa Inhaler*) 2 puff INH Q6H PRN PRN Reason: SHORTNESS OF BREATH Aspirin (Aspirin Tab*) 325 mg PO Q24H [facility] Last Admin: 06/29/19 17:16 Dose: 325 mg Diphenhydramine HCl (Benadryl Po*) 50 mg PO Q6H PRN PRN Reason: AGITATION / ANXIETY Last Admin: 06/29/19 18:06 Dose: 50 mg Ibuprofen (Motrin Tab*) 600 mg PO Q6H PRN PRN Reason: PAIN - MILD Last Admin: 06/29/19 20:35 Dose: 600 mg Lorazepam (Ativan Tab(*)) 1 mg PO Q6H PRN PRN Reason: AGITATION / ANXIETY Last Admin: 06/29/19 18:07 Dose: 1 mg Miscellaneous (Ativan Pyxis Denton) 1 ea N/A .ATIVAN IV DENTON PRN PRN Reason: PYXIS DENTON Multivitamins (Theragran Tab*) 1 tab PO DAILY [facility] Last Admin: 06/29/19 08:24 Dose: 1 tab Risperidone (Risperdal*) 3 mg PO BID [facility] Last Admin: 06/29/19 20:32 Dose: Not Given Risperidone (Risperdal-M Tab *) 1 mg PO Q6H PRN; Protocol PRN Reason: AGITATION Last Admin: 06/29/19 18:07 Dose: 1 mg Risperidone (Risperdal*) 2 mg PO 1500 [facility] Last Admin: 06/29/19 15:14 Dose: Not Given - Discharge Plan Discharge Plan: Outpatient Follow Up
[2019-06-30] MEDS: diPHENhydraMINE PO* 50 MG PO PRN (00:51)
[2019-06-30] MEDS: Acetaminophen TAB* 325 MG PO PRN ×2 (00:52→08:26)
[2019-06-30] MEDS: Ibuprofen TAB* 600 MG PO PRN (08:26)
[2019-06-30] MEDS: Vitamin THERAPEUTIC TAB PO SCH (08:27)
[2019-06-30] MEDS: risperiDONE TAB* 3 MG PO SCH ×2 (08:27→21:42)
--- NOTE | 2019-06-30 11:32 | PN ---
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 He quickly then said that he can't talk about this and left the group. He later returned and was attentive to discussion addressing importance of medications. He continues to demonstrate impaired insight and judgement regarding treatment of his fractured ankle, describing how "I can take the pain". He was encouraged to comply with medical recommendations.
--- NOTE | 2019-06-30 12:32 | PN ---
Subjective - Subjective Date of Service: 06/30/19 Service Type: [id number] Hosp care 15 min low complexity Subjective: Pro is not improving. He does now have a cast on his ankle and he is using a wheelchair, which is an improvemnt. He had been refusing his medications because they made him too sedated. He is now scheduled to get 3 mg of Risperdal at bedtime. He remains disorganized although he can seem clear if the conversation is brief and superficial. Objective - General Observations Appearance: Neat Appears Stated Age: Yes Stature: Overweight Eye Contact: Average Behavior/Activity: Peculiar - Interaction Observations Attitude Towards Examiner: Anxious, Defensive Stated Mood: Dysphoric Affect: Incongruent Speech Pattern/Tone: Clear Thought Process: Disorganized, Filght of Ideas Perception: WNL Thought Content: Obsessional, Grandiose Hallucination Type: Denies Delusion Type: Denies, Grandeur - Cognitive Function Orientation: A&O x 4 Level of Consciousness: Awake, Alert, Appropriate Cognition: Impaired Cognition, Impaired Attention/Concentration, Impaired Fund of Knowledge Estimated Intelligence: Normal Insight: Difficulty Acknowledging Presence of Psyciatric Problems Judgment Within Normal Limits: No Ability to Make Reasonable Decisions: Serverely Impaired - Medication Compliance Cooperative with Inpatient Medication Regimen: Partial - Group Participation Participates in Group Activities: Partial Assessment - Assessment Merits Inpatient Hospitalization: For Immediate Safety Inpatient DSM-V Dx: F20.9 Clinical Impression: Pro is a 29-year-old man with schizophrenia who has been hospitalized here several times for psychosis who comes to the hospital by 9.41 and is here on a 9.39 status following his odd behavior of talking to himself and being outside in his underclothes and fighting with invisible enemies. He remains disorganized , likely in the wake of his use of hallucination-inducing mushrooms. Plan - Plan Treatment Plan: Name: ANDRZEJ LOVE Birthdate: 1990 [id number] Restart Pro on Risperdal 3 mg BID with the plan to use Invega Sustenna. 06/28/19 Increase risperidone in afternoon to avoid consistent "meltdown" around 1600 also to continue to clear his thoughts. 06/29/19 Consider using Invega Sustenna, which has not yet been broached as he has shown no improvement. He remains unsafe and unable to care for himself adequately. His behavior is not consistent with being able to maintain an appropriate relationship with others; further, his outbursts in the outpatient setting would likely result in his return to the hospital or to be incarcerated. Continued Medication Management: Different Medication Medications: Current Medications Acetaminophen (Tylenol Tab*) 650 mg PO Q4H PRN PRN Reason: PAIN or TEMP > 101 F Last Admin: 06/30/19 08:26 Dose: 650 mg Al Hydrox/Mg Hydrox/Simethicone (Maalox Plus*) 30 ml PO Q4H PRN PRN Reason: INDIGESTION Last Admin: 06/28/19 05:15 Dose: 30 ml Albuterol (Ventolin Hfa Inhaler*) 2 puff INH Q6H PRN PRN Reason: SHORTNESS OF BREATH Aspirin (Aspirin Tab*) 325 mg PO Q24H [facility] Last Admin: 06/29/19 17:16 Dose: 325 mg Diphenhydramine HCl (Benadryl Po*) 50 mg PO Q6H PRN PRN Reason: AGITATION / ANXIETY Last Admin: 06/30/19 00:51 Dose: 50 mg Ibuprofen (Motrin Tab*) 600 mg PO Q6H PRN PRN Reason: PAIN - MILD Last Admin: 06/30/19 08:26 Dose: 600 mg Lorazepam (Ativan Tab(*)) 1 mg PO Q6H PRN PRN Reason: AGITATION / ANXIETY Last Admin: 06/29/19 18:07 Dose: 1 mg Miscellaneous (Ativan Pyxis Denton) 1 ea N/A .ATIVAN IV DENTON PRN PRN Reason: PYXIS DENTON Multivitamins (Theragran Tab*) 1 tab PO DAILY [facility] Last Admin: 06/30/19 08:27 Dose: Not Given Risperidone (Risperdal*) 3 mg PO BID [facility] Last Admin: 06/30/19 08:27 Dose: Not Given Risperidone (Risperdal-M Tab *) 1 mg PO Q6H PRN; Protocol PRN Reason: AGITATION Last Admin: 06/29/19 18:07 Dose: 1 mg Risperidone (Risperdal*) 2 mg PO 1500 [facility] Last Admin: 06/29/19 15:14 Dose: Not Given - Discharge Plan Discharge Plan: Outpatient Follow Up
[2019-06-30] MEDS: risperiDONE TAB* 2 MG PO SCH (15:51)
[2019-06-30] MEDS: Aspirin TAB* 325 MG PO SCH (17:11)
--- NOTE | 2019-06-30 21:07 | PN ---
Progress Note - Progress Note Date of Service: 06/30/19 Note: This provider was asked to visit the psychiatric unit to evaluate a mental health patient's complaint that his right lower extremity cast was too tight. Patient was diagnosed with medial malleolus fracture on 06/24/19, and placed in support boot. Patient repeatedly removed his boot, and it was decided today to place patient in a cast or right ankle due to psychiatric condition. supervisor asbestos removal states someone health information technologist for orthopedics came down earlier and applied cast today. Patient complaining of numbness and tingling to right foot. Patient obviously does not want cast on, hard to assess validity of his complaint. Patient states repeatedly that there was no fracture, he just strained his ankle, and therefore does not need cast. Discussed patient with orthopedics health information technologist Dr. Tijerina who stated the patient could remain in cast as long as circulation appeared intact, and the patient had no symptoms suggestive of compartment syndrome such as pain with active or passive movement of toes. On physical exam patient's toes on right foot are slightly more erythematous than toes of left foot. Erythema is blanchable. Temperature is the same as left foot. Patient able to move toes actively, and no pain noticed with passive movement of all toes of right foot. Patient in no apparent distress. Despite patient's expressed discomfort, Dr. Tijerina, myself and staff at psychiatric unit felt it would be better to leave cast on due to patient's psychiatric condition at this time.
[2019-07-01] MEDS ORDERED: LORazepam TAB(*) 1 MG ONE ×3 (09:10→13:26)
[2019-07-01] MEDS ORDERED: diPHENhydraMINE PO* 50 MG ONE (09:11)
[2019-07-01] MEDS ORDERED: Haloperidol TAB* 5 MG ONE (09:11)
[2019-07-01] MEDS ORDERED: Lorazepam PYXIS KEY ONE ×2 (09:13→13:16)
[2019-07-01] MEDS ORDERED: Haloperidol INJ IV/IM* 5 MG/ML AMP ONE ×2 (09:13→13:17)
[2019-07-01] MEDS ORDERED: diPHENhydraMINE IV* 50 MG/ML 1 ml VIAL (BENADRYL) ONE ×2 (09:13→13:17)
[2019-07-01] MEDS ORDERED: LORazepam INJ* 2 MG/ML 1 ML VIAL ONE ×2 (09:14→13:17)
[2019-07-01] MEDS ORDERED: LORazepam TAB(*) 1 MG PO ONE ×2 (10:00→14:00)
[2019-07-01] MEDS ORDERED: Haloperidol TAB* 5 MG PO ONE (10:00)
[2019-07-01] MEDS ORDERED: diPHENhydraMINE PO* 50 MG PO ONE (10:00)
[2019-07-01] MEDS: Vitamin THERAPEUTIC TAB PO SCH (11:09)
[2019-07-01] MEDS ORDERED: risperiDONE-M * 1 MG TAB.ORADIS ONE (13:26)
[2019-07-01] MEDS ORDERED: risperiDONE-M * 1 MG TAB.ORADIS PO ONE (14:00)
--- NOTE | 2019-07-01 14:58 | PN ---
Progress Note - Progress Note Date of Service: 07/01/19 SOAP: Subjective: Emergency Department staff called me last night and told me that they had been asked to see the patient because he was complaining about his right short leg cast. There was a complaint of some right toe tingling, but no pain with active and passive range of motion of the toes, so no concern about a compartment syndrome. It sounded as if the patient just preferred not to be in a cast. According to the psych note from yesterday, the patient is admitted with current psychosis with a diagnosis of schizophrenia and currently has impaired assessment and judgment. The patient was seen by KERLINE Nicolas of ortho on 06/26/19 and diagnosed with a non-displaced R medial malleolus fracture. Treatment was to be non- weight bearing and a tall CAM boot. Per report, the patient was taking off the boot, and so another ortho PA, Brady Rosa, was called to the psych floor yesterday about this. He placed a short leg cast. This makes sense to better immobilize the ankle as the patient is currently weight bearing against medical advice. As well, the cast can't be take off by the patient as the boot can. According to psych nursing, it was felt that the patient couldn't be given crutches as they would be a danger to others. Just prior to my arrival, the patient took a shower without covering the cast and so it became soaking wet. The patient wants the cast removed. Objective: NAD RLE: - Cast was soaking wet - Cast was removed. No significant skin breakdown. Mild ankle soft tissue swelling. Tenderness to palpation medial malleolus. NVID. Imaging: Prior xrays reviewed and show a non-displaced medial malleolus fracture, R. Assessment: R ankle medial malleolus fracture, non-displaced. Plan: - This patient clearly is against being in a cast. His assessment and judgment are impaired and my clinical preference would be for a cast. - However, if the patient is willing to do anything to have the cast removed ( e.g. repeatedly complain about the cast, shower without a bag), it doesn't make sense to continue with the cast. There is the risk of skin breakdown and ulceration if the patient gets his cast wet again. - I returned the patient to a walking boot. He needs to wear it at all times except for bathing. He should wear it while sleeping. - I told the patient he should be non-weight bearing right lower extremity. I warned the patient of the consequences of non-compliance including pain, swelling, arthritis chronically. He should use crutches if he can get them. - The patient should follow up with orthopedics in 1-2 weeks in the office with xrays right ankle.
[2019-07-01] MEDS: Aspirin TAB* 325 MG PO SCH (18:27)
[2019-07-01] MEDS: Ibuprofen TAB* 600 MG PO PRN (22:07)
[2019-07-02] MEDS: risperiDONE TAB* 3 MG PO SCH ×2 (00:26→22:38)
[2019-07-02] MEDS: Acetaminophen TAB* 325 MG PO PRN ×2 (08:34→20:46)
[2019-07-02] MEDS: Vitamin THERAPEUTIC TAB PO SCH (08:34)
[2019-07-02] MEDS: Ibuprofen TAB* 600 MG PO PRN ×2 (13:19→23:24)
[2019-07-02] MEDS: Aspirin TAB* 325 MG PO SCH (17:12)
[2019-07-02] MEDS: diPHENhydraMINE PO* 50 MG PO PRN (23:24)
[2019-07-02] MEDS: LORazepam TAB(*) 1 MG PO PRN (23:24)
[2019-07-03] MEDS: Vitamin THERAPEUTIC TAB PO SCH (09:15)
[2019-07-03] MEDS: Acetaminophen TAB* 325 MG PO PRN ×3 (09:15→23:50)
[2019-07-03] MEDS: diPHENhydraMINE PO* 50 MG PO PRN ×3 (13:44→23:50)
[2019-07-03] MEDS: risperiDONE-M * 1 MG TAB.ORADIS PO PRN ×2 (13:44→23:50)
[2019-07-03] MEDS: Aspirin TAB* 325 MG PO SCH (17:11)
[2019-07-03] MEDS: risperiDONE TAB* 3 MG PO SCH ×2 (17:47→21:39)
--- NOTE | 2019-07-03 18:22 | PN ---
Subjective - Subjective Date of Service: 07/03/19 Service Type: [id number] Hosp care 15 min low complexity Subjective: Following a rough beginning on Wednesday with few stat meds Chiopher finally sattled down and today has been calmer and pleasant. Still a little intrussive but easily redirectable. Denies SI, HI or psychosis. Objective - General Observations Appearance: Disheveled Appears Stated Age: Yes Stature: Overweight Posture: WNL Eye Contact: Average Behavior/Activity: Accelerated - Interaction Observations Attitude Towards Examiner: Cooperative Stated Mood: Euthymic Affect: Full Speech Pattern/Tone: Clear, Inappropriate Thought Process: Coherent Thought Content: Preoccupation/Ruminations, Grandiose Hallucination Type: Denies Delusion Type: Denies - Cognitive Function Orientation: A&O x 4 Level of Consciousness: Awake, Alert, Appropriate Cognition: WNL Estimated Intelligence: Normal Judgment Within Normal Limits: No Ability to Make Reasonable Decisions: Mildly Impaired - Medication Compliance Cooperative with Inpatient Medication Regimen: Yes - Group Participation Participates in Group Activities: No Assessment - Assessment Merits Inpatient Hospitalization: For Immediate Safety, For Stabilization, For Discharge Planning Inpatient DSM-V Dx: F20.9 Clinical Impression: Pro is a 29-year-old man with schizophrenia who has been hospitalized here several times for psychosis who comes to the hospital by 9.41 and is here on a 9.39 status following his odd behavior of talking to himself and being outside in his underclothes and fighting with invisible enemies. He remains disorganized , likely in the wake of his use of hallucination-inducing mushrooms. Plan - Plan Treatment Plan: Name: ANDRZEJ LOVE Birthdate: 1990 [id number] Restart Pro on Risperdal 3 mg BID with the plan to use Invega Sustenna. 06/28/19 Increase risperidone in afternoon to avoid consistent "meltdown" around 1600 also to continue to clear his thoughts. 06/29/19 Consider using Invega Sustenna, which has not yet been broached as he has shown no improvement. He remains unsafe and unable to care for himself adequately. His behavior is not consistent with being able to maintain an appropriate relationship with others; further, his outbursts in the outpatient setting would likely result in his return to the hospital or to be incarcerated. Continued Medication Management: Continue Outpt Medication Medications: Current Medications Acetaminophen (Tylenol Tab*) 650 mg PO Q4H PRN PRN Reason: PAIN or TEMP > 101 F Last Admin: 07/03/19 17:11 Dose: 650 mg Al Hydrox/Mg Hydrox/Simethicone (Maalox Plus*) 30 ml PO Q4H PRN PRN Reason: INDIGESTION Last Admin: 06/28/19 05:15 Dose: 30 ml Albuterol (Ventolin Hfa Inhaler*) 2 puff INH Q6H PRN PRN Reason: SHORTNESS OF BREATH Aspirin (Aspirin Tab*) 325 mg PO Q24H SH[facility]IN Last Admin: 07/03/19 17:11 Dose: 325 mg Diphenhydramine HCl (Benadryl Po*) 50 mg PO Q6H PRN PRN Reason: AGITATION / ANXIETY Last Admin: 07/03/19 17:47 Dose: 50 mg Ibuprofen (Motrin Tab*) 600 mg PO Q6H PRN PRN Reason: PAIN - MILD Last Admin: 07/02/19 23:24 Dose: 600 mg Miscellaneous (Ativan Pyxis Denton) 1 ea N/A .ATIVAN IV DENTON PRN PRN Reason: PYXIS DENTON Multivitamins (Theragran Tab*) 1 tab PO DAILY SHIRIN Last Admin: 07/03/19 09:15 Dose: 1 tab Risperidone (Risperdal-M Tab *) 1 mg PO Q6H PRN; Protocol PRN Reason: AGITATION Last Admin: 07/03/19 13:44 Dose: 1 mg Risperidone (Risperdal*) 3 mg PO BEDTIME SHIRIN Last Admin: 07/03/19 17:47 Dose: 3 mg - Discharge Plan Discharge Plan: Outpatient Follow Up Outpatient Program: [facility]
[2019-07-04] MEDS: Vitamin THERAPEUTIC TAB PO SCH (08:42)
--- NOTE | 2019-07-04 11:41 | PN ---
BSU: Group Therapy Note - Service Type Service Type: [id number] Group Psychotherapy - CBT Group Note: Werner was disorganized in programming this morning, talking about october 14 as an important date, but did not understand why. He also described wanting to tell someone he met in [employer] that "people love him", but doesn't know how to contact him. He presents with fair affect, but concerns remain about impaired insight and judgement.
[2019-07-04] MEDS: Aspirin TAB* 325 MG PO SCH (17:41)
[2019-07-04] MEDS: Acetaminophen TAB* 325 MG PO PRN (21:56)
[2019-07-04] MEDS: Paliperidone ER TAB* 6 MG TAB.ER PO SCH (21:57)
[2019-07-04] MEDS: risperiDONE-M * 1 MG TAB.ORADIS PO PRN (23:43)
[2019-07-04] MEDS: diPHENhydraMINE PO* 50 MG PO PRN (23:43)
[2019-07-05] MEDS: Ibuprofen TAB* 600 MG PO PRN (06:57)
[2019-07-05] MEDS: Vitamin THERAPEUTIC TAB PO SCH (09:23)
--- NOTE | 2019-07-05 15:04 | PN ---
Subjective - Subjective Date of Service: 07/05/19 Service Type: [id number] Hosp care 15 min low complexity Subjective: Treatment over objection paperwork was filed today. Pro remains disorganized. He has bizarre beliefs that he can sometimes bury beneath a facade of typical behavior, but he continues to not follow physical therapy, psychiatric, and orthopedic advice. He is difficult to engage. When presented with the idea that he could take an intramuscular injection and take his medication only once every 28 days, he offered an emphatic no. He did take medication that night, but that was the first time in a week. Objective - General Observations Appearance: Neat Appears Stated Age: Yes Stature: Overweight Posture: WNL Eye Contact: Average Behavior/Activity: Peculiar - Interaction Observations Attitude Towards Examiner: Uncooperative, Confused Stated Mood: Dysphoric, Anxious Affect: Restricted Speech Pattern/Tone: Clear Thought Process: Disorganized Perception: WNL Thought Content: Preoccupation/Ruminations, Grandiose Hallucination Type: None, Denies Delusion Type: Grandeur - Cognitive Function Orientation: A&O x 4 Level of Consciousness: Awake, Alert Cognition: Impaired Cognition, Impaired Memory, Impaired Attention/Concentration , Impaired Ability to Abstract Estimated Intelligence: Borderline Range Insight: Difficulty Acknowledging Presence of Psyciatric Problems Judgment Within Normal Limits: No Ability to Make Reasonable Decisions: Serverely Impaired - Medication Compliance Cooperative with Inpatient Medication Regimen: Partial - Group Participation Participates in Group Activities: Partial Assessment - Assessment Merits Inpatient Hospitalization: For Immediate Safety Inpatient DSM-V Dx: F20.9 Clinical Impression: Pro is a 29-year-old man with schizophrenia who has been hospitalized here several times for psychosis who comes to the hospital by 9.41 and is here on a 9.39 status following his odd behavior of talking to himself and being outside in his underclothes and fighting with invisible enemies. He remains disorganized , likely in the wake of his use of hallucination-inducing mushrooms. Treatment over objection has been initiated. Plan - Plan Treatment Plan: Name: ANDRZEJ LOVE Birthdate: 1990 [id number] Restart Pro on Risperdal 3 mg BID with the plan to use Invega Sustenna. 06/28/19 Increase risperidone in afternoon to avoid consistent "meltdown" around 1600 also to continue to clear his thoughts. 06/29/19 Consider using Invega Sustenna, which has not yet been broached as he has shown no improvement. He remains unsafe and unable to care for himself adequately. His behavior is not consistent with being able to maintain an appropriate relationship with others; further, his outbursts in the outpatient setting would likely result in his return to the hospital or to be incarcerated. 07/05/19 Sustenna was recommended to Pro, but he declined. Risperdal continues to be the ordered medication. Pro is encouraged to take it to help him sleep and to clear his thoughts. Continued Medication Management: Different Medication Medications: Current Medications Acetaminophen (Tylenol Tab*) 650 mg PO Q4H PRN PRN Reason: PAIN or TEMP > 101 F Last Admin: 07/04/19 21:56 Dose: 650 mg Al Hydrox/Mg Hydrox/Simethicone (Maalox Plus*) 30 ml PO Q4H PRN PRN Reason: INDIGESTION Last Admin: 06/28/19 05:15 Dose: 30 ml Albuterol (Ventolin Hfa Inhaler*) 2 puff INH Q6H PRN PRN Reason: SHORTNESS OF BREATH Aspirin (Aspirin Tab*) 325 mg PO Q24H [facility] Last Admin: 07/04/19 17:41 Dose: 325 mg Diphenhydramine HCl (Benadryl Po*) 50 mg PO Q6H PRN PRN Reason: AGITATION / ANXIETY Last Admin: 07/04/19 23:43 Dose: 50 mg Ibuprofen (Motrin Tab*) 600 mg PO Q6H PRN PRN Reason: PAIN - MILD Last Admin: 07/05/19 06:57 Dose: 600 mg Miscellaneous (Ativan Pyxis Denton) 1 ea N/A .ATIVAN IV DENTON PRN PRN Reason: PYXIS DENTON Multivitamins (Theragran Tab*) 1 tab PO DAILY SHIRIN Last Admin: 07/05/19 09:23 Dose: 1 tab Paliperidone (Invega Er Tab*) 6 mg PO BEDTIME SHIRIN Last Admin: 07/04/19 21:57 Dose: 6 mg Risperidone (Risperdal-M Tab *) 1 mg PO Q6H PRN; Protocol PRN Reason: AGITATION Last Admin: 07/04/19 23:43 Dose: 1 mg
[2019-07-05] MEDS: Acetaminophen TAB* 325 MG PO PRN (15:15)
[2019-07-05] MEDS: Aspirin TAB* 325 MG PO SCH (16:34)
[2019-07-05] MEDS: Paliperidone ER TAB* 6 MG TAB.ER PO SCH ×2 (23:02→23:34)
[2019-07-05] MEDS: risperiDONE-M * 1 MG TAB.ORADIS PO PRN (23:06)
[2019-07-05] MEDS: diPHENhydraMINE PO* 50 MG PO PRN (23:33)
[2019-07-06] MEDS: Acetaminophen TAB* 325 MG PO PRN (08:08)
[2019-07-06] MEDS: Vitamin THERAPEUTIC TAB PO SCH (08:09)
[2019-07-06] MEDS: Aspirin TAB* 325 MG PO SCH (17:45)
[2019-07-06] MEDS: risperiDONE-M * 1 MG TAB.ORADIS PO PRN (17:45)
[2019-07-06] MEDS: diPHENhydraMINE PO* 50 MG PO PRN (18:52)
[2019-07-06] MEDS ORDERED: Haloperidol TAB* 5 MG PO ONE (18:55)
[2019-07-06] MEDS ORDERED: diPHENhydraMINE PO* 50 MG PO ONE (18:55)
[2019-07-06] MEDS ORDERED: LORazepam TAB(*) 1 MG PO ONE (18:55)
[2019-07-06] MEDS ORDERED: LORazepam TAB(*) 1 MG ONE (18:57)
[2019-07-06] MEDS ORDERED: diPHENhydraMINE PO* 50 MG ONE (18:57)
[2019-07-06] MEDS ORDERED: diPHENhydraMINE IV* 50 MG/ML 1 ml VIAL (BENADRYL) ONE (18:58)
[2019-07-06] MEDS ORDERED: Haloperidol TAB* 5 MG ONE (18:58)
[2019-07-06] MEDS ORDERED: Lorazepam PYXIS KEY ONE (18:58)
[2019-07-06] MEDS ORDERED: LORazepam INJ* 2 MG/ML 1 ML VIAL ONE (18:59)
[2019-07-06] MEDS ORDERED: Haloperidol INJ IV/IM* 5 MG/ML AMP ONE (18:59)
[2019-07-06] MEDS ORDERED: chlorproMAZINE INJ* 25 MG/ML 2 ML (50 MG) ONE (19:36)
[2019-07-06] MEDS ORDERED: chlorproMAZINE TAB* 100 MG ONE (19:36)
[2019-07-06] MEDS ORDERED: chlorproMAZINE TAB* 100 MG PO ONE (21:00)
[2019-07-06] MEDS: Paliperidone ER TAB* 6 MG TAB.ER PO SCH (22:06)
[2019-07-07] MEDS: Acetaminophen TAB* 325 MG PO PRN ×2 (07:45→20:15)
[2019-07-07] MEDS: risperiDONE-M * 1 MG TAB.ORADIS PO PRN (12:59)
[2019-07-07] MEDS: Aspirin TAB* 325 MG PO SCH (17:06)
--- NOTE | 2019-07-07 20:12 | PN ---
Subjective - Subjective Date of Service: 07/07/19 Service Type: [id number] Hosp care 25 min moderate complexity Subjective: Pro today requested to see me and Lexi Orellana LMSW, to discuss his discharge. 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 When asked how these related to his rapping career and his discharge, he stated , "Connect the dots!" The conversation went on for quite some time and did not turn to reasonable or rational conversation. He was loud and demanding, but not threatening. We also discussed whether he had a traumatic brain injury and he assented that he did. He was playing football without helmets and purposely crashed into another player's head. Pro asserted that the the security assurance specialist Ivan knows about it because he was there. When I consulted with Ivan, he stated he had never met Pro before he met him here in the hospital. Objective - General Observations Appearance: Neat, Well Groomed Appears Stated Age: Yes Stature: Overweight Posture: WNL Eye Contact: Average Behavior/Activity: Peculiar - Interaction Observations Attitude Towards Examiner: Confused, Demanding Stated Mood: Dysphoric, Irritable, Anxious Affect: Labile Speech Pattern/Tone: Clear, Rambling, Excessive, Pressured, Loud Volume Thought Process: Goal Directed, Loose Associations Perception: WNL Thought Content: Paranoid, Grandiose Hallucination Type: Denies Delusion Type: Denies, Grandeur - Cognitive Function Orientation: A&O x 4 Level of Consciousness: Awake, Alert, Appropriate Cognition: Impaired Cognition, Impaired Attention/Concentration, Impaired Ability to Abstract, Impaired Fund of Knowledge Estimated Intelligence: Borderline Range Insight: Difficulty Acknowledging Presence of Psyciatric Problems Judgment Within Normal Limits: No Ability to Make Reasonable Decisions: Serverely Impaired - Medication Compliance Cooperative with Inpatient Medication Regimen: Partial - Group Participation Participates in Group Activities: Partial Assessment - Assessment Merits Inpatient Hospitalization: For Immediate Safety Inpatient DSM-V Dx: F20.9 Clinical Impression: Pro is a 29-year-old man with schizophrenia who has been hospitalized here several times for psychosis who comes to the hospital by 9.41 and is here on a 9.39 status following his odd behavior of talking to himself and being outside in his underclothes and fighting with invisible enemies. He remains disorganized , likely in the wake of his use of hallucination-inducing mushrooms. Treatment over objection has been initiated. Plan - Plan Treatment Plan: Name: ANDRZEJ LOVE Birthdate: 1990 [id number] Restart Pro on Risperdal 3 mg BID with the plan to use Invega Sustenna. 06/28/19 Increase risperidone in afternoon to avoid consistent "meltdown" around 1600 also to continue to clear his thoughts. 06/29/19 Consider using Invega Sustenna, which has not yet been broached as he has shown no improvement. He remains unsafe and unable to care for himself adequately. His behavior is not consistent with being able to maintain an appropriate relationship with others; further, his outbursts in the outpatient setting would likely result in his return to the hospital or to be incarcerated. 07/05/19 Sustenna was recommended to Pro, but he declined. Risperdal continues to be the ordered medication. Pro is encouraged to take it to help him sleep and to clear his thoughts. 07/07/19 Pro agreed to take medication with the caveat that he must be able to read side effects and approve them. He states that he always takes his medication, but records indicate that is not true. Continued Medication Management: Different Medication Medications: Current Medications Acetaminophen (Tylenol Tab*) 650 mg PO Q4H PRN PRN Reason: PAIN or TEMP > 101 F Last Admin: 07/07/19 07:45 Dose: 650 mg Al Hydrox/Mg Hydrox/Simethicone (Maalox Plus*) 30 ml PO Q4H PRN PRN Reason: INDIGESTION Last Admin: 06/28/19 05:15 Dose: 30 ml Albuterol (Ventolin Hfa Inhaler*) 2 puff INH Q6H PRN PRN Reason: SHORTNESS OF BREATH Aspirin (Aspirin Tab*) 325 mg PO Q24H SHIRIN Last Admin: 07/07/19 17:06 Dose: 325 mg Diphenhydramine HCl (Benadryl Po*) 50 mg PO Q6H PRN PRN Reason: AGITATION / ANXIETY Last Admin: 07/06/19 18:52 Dose: 50 mg Ibuprofen (Motrin Tab*) 600 mg PO Q6H PRN PRN Reason: PAIN - MILD Last Admin: 07/05/19 06:57 Dose: 600 mg Miscellaneous (Ativan Pyxis Denton) 1 ea N/A .ATIVAN IV DENTON PRN PRN Reason: PYXIS DENTON Multivitamins (Theragran Tab*) 1 tab PO DAILY [facility] Last Admin: 07/06/19 08:09 Dose: 1 tab Paliperidone (Invega Er Tab*) 6 mg PO BEDTIME [facility] Last Admin: 07/06/19 22:06 Dose: Not Given Risperidone (Risperdal*) 2 mg PO Q6H PRN PRN Reason: AGITATION
[2019-07-07] MEDS: Paliperidone ER TAB* 6 MG TAB.ER PO SCH (20:17)
[2019-07-07] MEDS: risperiDONE TAB* 2 MG PO PRN (22:39)
[2019-07-07] MEDS: Vitamin THERAPEUTIC TAB PO SCH (23:00)
[2019-07-08] MEDS: diPHENhydraMINE PO* 50 MG PO PRN (02:40)
[2019-07-08] MEDS: Acetaminophen TAB* 325 MG PO PRN ×2 (05:30→11:31)
[2019-07-08] MEDS: Vitamin THERAPEUTIC TAB PO SCH (11:31)
[2019-07-08] MEDS: Aspirin TAB* 325 MG PO SCH (18:22)
[2019-07-08] MEDS: risperiDONE TAB* 2 MG PO PRN (18:40)
[2019-07-08] MEDS: Paliperidone ER TAB* 6 MG TAB.ER PO SCH (19:28)
[2019-07-09] MEDS: Acetaminophen TAB* 325 MG PO PRN (08:25)
[2019-07-09] MEDS: Vitamin THERAPEUTIC TAB PO SCH (08:26)
[2019-07-09] MEDS: Aspirin TAB* 325 MG PO SCH (16:37)
[2019-07-09] MEDS: Paliperidone ER TAB* 6 MG TAB.ER PO SCH (19:43)
[2019-07-09] MEDS: diPHENhydraMINE PO* 50 MG PO PRN (23:19)
[2019-07-10] MEDS: Acetaminophen TAB* 325 MG PO PRN (07:54)
[2019-07-10] MEDS: Vitamin THERAPEUTIC TAB PO SCH (07:54)
--- NOTE | 2019-07-10 11:46 | PN ---
BSU: Group Therapy Note - Service Type Service Type: [id number] Group Psychotherapy - CBT Group Note: Werner was able to engage in conversation in a coherent fashion this morning, although concerns remain regarding insight and judgement. He discussed his 8 year old daughter in some detail, although it became clear he cannot see her, but works to pay child support for her. He was well related to staff and peers in conversation.
--- NOTE | 2019-07-10 16:20 | PN ---
Subjective - Subjective Date of Service: 07/10/19 Service Type: [id number] Hosp care 25 min moderate complexity Subjective: Pro requested to meet today while he was using the comfort room. He is more organized, although he is still grandiose, about the projects he would like to do. He recognizes that they are far fetched, but maintains that they would work , if only in a script for a movie. He has been consistently taking his medication since the change to Invega and he seems to be making strides toward being well. Objective - General Observations Appearance: Neat, Well Groomed Appears Stated Age: Yes Stature: Overweight Posture: WNL Eye Contact: Average Behavior/Activity: WNL - Interaction Observations Attitude Towards Examiner: Cooperative, Anxious, Defensive Stated Mood: Dysphoric Affect: Full Speech Pattern/Tone: Clear Thought Process: Coherent, Gaines Perception: WNL Thought Content: Grandiose Hallucination Type: None Delusion Type: Grandeur - Cognitive Function Orientation: A&O x 4 Level of Consciousness: Awake, Alert, Appropriate Cognition: Impaired Cognition Estimated Intelligence: Borderline Range Insight: Difficulty Acknowledging Presence of Psyciatric Problems Judgment Within Normal Limits: No Ability to Make Reasonable Decisions: Moderately Impaired - Medication Compliance Cooperative with Inpatient Medication Regimen: Yes - Group Participation Participates in Group Activities: Yes Assessment - Assessment Merits Inpatient Hospitalization: For Immediate Safety Inpatient DSM-V Dx: F20.9 Clinical Impression: Pro is a 29-year-old man with schizophrenia who has been hospitalized here several times for psychosis who comes to the hospital by 9.41 and is here on a 9.39 status following his odd behavior of talking to himself and being outside in his underclothes and fighting with invisible enemies. He remains disorganized , likely in the wake of his use of hallucination-inducing mushrooms. Treatment over objection has been initiated. Plan - Plan Treatment Plan: Name: ANDRZEJ LOVE Birthdate: 1990 [id number] Restart Pro on Risperdal 3 mg BID with the plan to use Invega Sustenna. 06/28/19 Increase risperidone in afternoon to avoid consistent "meltdown" around 1600 also to continue to clear his thoughts. 06/29/19 Consider using Invega Sustenna, which has not yet been broached as he has shown no improvement. He remains unsafe and unable to care for himself adequately. His behavior is not consistent with being able to maintain an appropriate relationship with others; further, his outbursts in the outpatient setting would likely result in his return to the hospital or to be incarcerated. 07/05/19 Sustenna was recommended to Pro, but he declined. Risperdal continues to be the ordered medication. Pro is encouraged to take it to help him sleep and to clear his thoughts. 07/07/19 Pro agreed to take medication with the caveat that he must be able to read side effects and approve them. He states that he always takes his medication, but records indicate that is not true. 07/10/19 Pro is taking medications. He does not agree to an injectable. We will revisit the idea of treatment over objection. Continued Medication Management: Different Medication Medications: Current Medications Acetaminophen (Tylenol Tab*) 650 mg PO Q4H PRN PRN Reason: PAIN or TEMP > 101 F Last Admin: 07/10/19 07:54 Dose: 650 mg Al Hydrox/Mg Hydrox/Simethicone (Maalox Plus*) 30 ml PO Q4H PRN PRN Reason: INDIGESTION Last Admin: 06/28/19 05:15 Dose: 30 ml Albuterol (Ventolin Hfa Inhaler*) 2 puff INH Q6H PRN PRN Reason: SHORTNESS OF BREATH Aspirin (Aspirin Tab*) 325 mg PO Q24H [facility] Last Admin: 07/09/19 16:37 Dose: 325 mg Diphenhydramine HCl (Benadryl Po*) 50 mg PO Q6H PRN PRN Reason: AGITATION / ANXIETY Last Admin: 07/09/19 23:19 Dose: 50 mg Ibuprofen (Motrin Tab*) 600 mg PO Q6H PRN PRN Reason: PAIN - MILD Last Admin: 07/05/19 06:57 Dose: 600 mg Miscellaneous (Ativan Pyxis Denton) 1 ea N/A .ATIVAN IV DENTON PRN PRN Reason: PYXIS DENTON Multivitamins (Theragran Tab*) 1 tab PO DAILY [facility] Last Admin: 07/10/19 07:54 Dose: 1 tab Paliperidone (Invega Er Tab*) 6 mg PO BEDTIME [facility] Last Admin: 07/09/19 19:43 Dose: 6 mg Risperidone (Risperdal*) 2 mg PO Q6H PRN PRN Reason: AGITATION Last Admin: 07/08/19 18:40 Dose: 2 mg
[2019-07-10] MEDS: Aspirin TAB* 325 MG PO SCH (17:03)
[2019-07-10] MEDS: Paliperidone ER TAB* 6 MG TAB.ER PO SCH (21:05)
[2019-07-11] MEDS: Acetaminophen TAB* 325 MG PO PRN (07:26)
[2019-07-11] MEDS: Vitamin THERAPEUTIC TAB PO SCH (08:10)
--- NOTE | 2019-07-11 11:28 | PN ---
BSU: Group Therapy Note - Service Type Service Type: [id number] Group Psychotherapy - Cognitive Behavioral Group Therapy ( CBT):Patient was attentive and participatory in CBT programming this morning, and remained in good behavioral control. Werner related introduced material to personal experience in a relevent fashion, and was able to tolerate disruptive behavior from peers without becoming disruptive. He encouraged a peer to remain appropriate when said peer attempted to disrupt conversation.
[2019-07-11] MEDS: Aspirin TAB* 325 MG PO SCH (17:02)
[2019-07-11] MEDS: diPHENhydraMINE PO* 50 MG PO PRN (19:43)
[2019-07-11] MEDS: Paliperidone ER TAB* 9 MG TAB.ER PO SCH (20:03)
[2019-07-11] MEDS ORDERED: Divalproex DR TAB(*) 250 MG PO SCH (21:00)
[2019-07-12] MEDS: Acetaminophen TAB* 325 MG PO PRN (08:44)
[2019-07-12] MEDS: Vitamin THERAPEUTIC TAB PO SCH (08:44)
[2019-07-12] MEDS: Ibuprofen TAB* 600 MG PO PRN (14:01)
--- NOTE | 2019-07-12 16:35 | PN ---
Subjective - Subjective Date of Service: 07/12/19 Service Type: [id number] Hosp care 15 min low complexity Subjective: Pro earnestly asked to go home. He is compliant with medications and is less obviously psychotic. He is delusional, continuing to believe that he will drop an album of rap music soon. He is referencing his past and is less fixated on his daughter. Objective - General Observations Appearance: Neat, Well Groomed Appears Stated Age: Yes Stature: Overweight Posture: WNL Eye Contact: Average Behavior/Activity: WNL - Interaction Observations Attitude Towards Examiner: Cooperative, Anxious Stated Mood: Dysphoric, Irritable, Anxious Affect: Full Speech Pattern/Tone: Clear, Rambling Thought Process: Filght of Ideas Perception: WNL Thought Content: Obsessional Hallucination Type: None Delusion Type: Denies, Grandeur - Cognitive Function Orientation: A&O x 4 Level of Consciousness: Awake, Alert, Appropriate Cognition: Impaired Cognition, Impaired Attention/Concentration, Impaired Ability to Abstract Estimated Intelligence: Borderline Range Insight: Difficulty Acknowledging Presence of Psyciatric Problems Ability to Make Reasonable Decisions: Moderately Impaired - Medication Compliance Cooperative with Inpatient Medication Regimen: Yes - Group Participation Participates in Group Activities: Yes Assessment - Assessment Merits Inpatient Hospitalization: For Immediate Safety, For Discharge Planning Inpatient DSM-V Dx: F20.9 Clinical Impression: Pro is a 29-year-old man with schizophrenia who has been hospitalized here several times for psychosis who comes to the hospital by 9.41 and is here on a 9.39 status following his odd behavior of talking to himself and being outside in his underclothes and fighting with invisible enemies. He is less psychotic although he remains delusional. Plan - Plan Treatment Plan: Name: ANDRZEJ LOVE Birthdate: 1990 [id number] Restart Pro on Risperdal 3 mg BID with the plan to use Invega Sustenna. 06/28/19 Increase risperidone in afternoon to avoid consistent "meltdown" around 1600 also to continue to clear his thoughts. 06/29/19 Consider using Invega Sustenna, which has not yet been broached as he has shown no improvement. He remains unsafe and unable to care for himself adequately. His behavior is not consistent with being able to maintain an appropriate relationship with others; further, his outbursts in the outpatient setting would likely result in his return to the hospital or to be incarcerated. 07/05/19 Sustenna was recommended to Pro, but he declined. Risperdal continues to be the ordered medication. Pro is encouraged to take it to help him sleep and to clear his thoughts. 07/07/19 Pro agreed to take medication with the caveat that he must be able to read side effects and approve them. He states that he always takes his medication, but records indicate that is not true. 07/10/19 Pro is taking medications. He does not agree to an injectable. We will revisit the idea of treatment over objection. 07/12/19 Pro continues to take medications. He is wearing his boot for his broken ankle consistently. He is eager to go home. Injection was accepted. We hope to have it available on Wednesday so he can be discharged Wednesday after the second injection. Continued Medication Management: Different Medication Medications: Current Medications Acetaminophen (Tylenol Tab*) 650 mg PO Q4H PRN PRN Reason: PAIN or TEMP > 101 F Last Admin: 07/12/19 08:44 Dose: 650 mg Al Hydrox/Mg Hydrox/Simethicone (Maalox Plus*) 30 ml PO Q4H PRN PRN Reason: INDIGESTION Last Admin: 06/28/19 05:15 Dose: 30 ml Albuterol (Ventolin Hfa Inhaler*) 2 puff INH Q6H PRN PRN Reason: SHORTNESS OF BREATH Aspirin (Aspirin Tab*) 325 mg PO Q24H [facility] Last Admin: 07/11/19 17:02 Dose: 325 mg Diphenhydramine HCl (Benadryl Po*) 50 mg PO Q6H PRN PRN Reason: AGITATION / ANXIETY Last Admin: 07/11/19 19:43 Dose: 50 mg Ibuprofen (Motrin Tab*) 600 mg PO Q6H PRN PRN Reason: PAIN - MILD Last Admin: 07/12/19 14:01 Dose: 600 mg Miscellaneous (Ativan Pyxis Denton) 1 ea N/A .ATIVAN IV DENTON PRN PRN Reason: PYXIS DENTON Multivitamins (Theragran Tab*) 1 tab PO DAILY [facility] Last Admin: 07/12/19 08:44 Dose: 1 tab Paliperidone (Invega Er Tab*) 9 mg PO BEDTIME [facility] Last Admin: 07/11/19 20:03 Dose: 9 mg Paliperidone Palmitate (Invega Sustenna*) 234 mg IM ONCE ONE Stop: 07/12/19 11:21 Paliperidone Palmitate (Invega Sustenna*) 156 mg IM ONCE ONE Stop: 07/15/19 11:21 Risperidone (Risperdal*) 2 mg PO Q6H PRN PRN Reason: AGITATION Last Admin: 07/08/19 18:40 Dose: 2 mg - Discharge Plan Discharge Plan: Outpatient Follow Up
--- NOTE | 2019-07-12 16:36 | PN ---
BSU: Group Therapy Note - Service Type Service Type: [id number] Group Psychotherapy - Medication Education Group: Patient was attentive and participatory in group, and remained in good behavioral control. Patient expressed positive insights regarding relevant treatment interventions. Patient stated understanding of material discussed and had appropriate questions.
[2019-07-12] MEDS: Aspirin TAB* 325 MG PO SCH (17:06)
[2019-07-12] MEDS: diPHENhydraMINE PO* 50 MG PO PRN (18:23)
[2019-07-12] MEDS: Paliperidone ER TAB* 9 MG TAB.ER PO SCH (20:29)
[2019-07-13] MEDS: Acetaminophen TAB* 325 MG PO PRN (06:45)
[2019-07-13] MEDS: Vitamin THERAPEUTIC TAB PO SCH (10:06)
[2019-07-13] MEDS: Aspirin TAB* 325 MG PO SCH (17:53)
[2019-07-13] MEDS: diPHENhydraMINE PO* 50 MG PO PRN (20:29)
[2019-07-13] MEDS: Paliperidone ER TAB* 9 MG TAB.ER PO SCH (20:29)
[2019-07-14] MEDS: Vitamin THERAPEUTIC TAB PO SCH (07:21)
[2019-07-14] MEDS: Acetaminophen TAB* 325 MG PO PRN (07:21)
[2019-07-14] MEDS ORDERED: Paliperidone SUSTENNA* 234 MG/1.5 ML IM ONE (13:00)
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
[2019-07-14] MEDS: Aspirin TAB* 325 MG PO SCH (16:07)
[2019-07-14] MEDS: diPHENhydraMINE PO* 50 MG PO PRN (18:48)
[2019-07-14] MEDS: Paliperidone ER TAB* 9 MG TAB.ER PO SCH (19:55)
[2019-07-14] MEDS: risperiDONE TAB* 2 MG PO PRN (19:57)
[2019-07-15] MEDS: Vitamin THERAPEUTIC TAB PO SCH (09:13)
[2019-07-15] MEDS: Aspirin TAB* 325 MG PO SCH (16:51)
[2019-07-15] MEDS: risperiDONE TAB* 2 MG PO PRN (18:20)
[2019-07-15] MEDS: diPHENhydraMINE PO* 50 MG PO PRN (18:20)
[2019-07-15] MEDS: Paliperidone ER TAB* 9 MG TAB.ER PO SCH (19:59)
[2019-07-16] MEDS: Vitamin THERAPEUTIC TAB PO SCH (07:53)
[2019-07-16] MEDS: diPHENhydraMINE PO* 50 MG PO PRN (17:39)
[2019-07-16] MEDS: risperiDONE TAB* 2 MG PO PRN (17:39)
[2019-07-16] MEDS: Aspirin TAB* 325 MG PO SCH (21:46)
[2019-07-16] MEDS: Paliperidone ER TAB* 9 MG TAB.ER PO SCH (21:46)
[2019-07-17] MEDS: Acetaminophen TAB* 325 MG PO PRN (08:07)
[2019-07-17] MEDS: Vitamin THERAPEUTIC TAB PO SCH (08:08)
[2019-07-17 09:56] VITALS: BP 119/61
[2019-07-17] MEDS ORDERED: Paliperidone SUSTENNA* 156 MG/1 ML IM ONE (13:00)
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
== END 2019-07-17 12:23 | disposition home or self-care (01) | DRG 750 ==
LOC: ED 17:37 → BSU 06-25 04:00
PROVIDERS: ADMIT Psychiatry & Neurology Psychiatry; ATTEND Psychiatry & Neurology Psychiatry
PROC: GZHZZZZ Group Psychotherapy (ICD-10-PCS; principal; 2019-07-12)
PROC: 2W3QX2Z Immobilization of Right Lower Leg using Cast (ICD-10-PCS; 2019-07-12)
DX: F20.9 Schizophrenia, unspecified (principal); Z91.19 Patient's noncompliance with other medical treatment and regimen; Z62.810 Personal history of physical and sexual abuse in childhood; F12.10 Cannabis abuse, uncomplicated; F41.9 Anxiety disorder, unspecified; F43.10 Post-traumatic stress disorder, unspecified; F17.210 Nicotine dependence, cigarettes, uncomplicated; E66.3 Overweight; S82.54XA Nondisplaced fracture of medial malleolus of right tibia, initial encounter for closed fracture; F31.9 Bipolar disorder, unspecified; W14.XXXA Fall from tree, initial encounter; Z72.89 Other problems related to lifestyle; Z91.5 Personal history of self-harm; Z82.49 Family history of ischemic heart disease and other diseases of the circulatory system; Z68.36 Body mass index [BMI] 36.0-36.9, adult; Y92.9 Unspecified place or not applicable
CPT/HCPCS: 36415; 70450; 80053; 80061; 80307; 80320; 80329; 81003; 81015; 82150; 82247; 82248; 83036; 83690; 84443; 85025; 90853; 99222; 99231; 99232; 99233; 99238; 99284; A9270-GY; G0480; G8978-GP-CI; G8979-GP-CI; G8980-GP-CI; J1200; J1630; J2060; J2426

== ENCOUNTER 2023-10-22 00:28 | Inpatient (IN) ==
[2023-10-22 01:42] LABS: ABS Eosinophils 0.2 10^3/uL (0.0-0.5); ABS Lymphocytes 1.8 10^3/uL (1.0-4.8); ABS Monocytes 0.6 10^3/uL (0.0-1.1); ABS Neutrophils 5.4 10^3/uL (1.5-7.6); Hematocrit 41.9 % (38-53); Hemoglobin 14.6 g/dL (13.2-16.3); Lymphocyte % 22.9 %; Mean Corpuscular Hgb Conc 34.8 g/dL (31-36); Mean Corpuscular Volume 94.7 fL (80-97); Mean Platelet Volume 6.5 fL (7.5-11.2); Nucleated Red Blood Cells % 0.1 %/100WBC (0.0-0.8); Platelet Count 292 10^3/uL (150-450); Red Blood Count 4.42 10^6/uL (4.06-5.63); Red Cell Distribution Width 12.1 % (12-17); White Blood Count 8.1 10^3/uL (3.6-10.2)
[2023-10-22 02:07] LABS: ALT 35 U/L (7-52); AST 45 U/L (13-39); Albumin 4.4 g/dL (3.2-5.2); Albumin/Globulin Ratio 1.9 (1-3); Alkaline Phosphatase 104 U/L (35-149); Anion Gap 6 mmol/L (2-16); Blood Urea Nitrogen 12 mg/dL (6-24); CO2 Carbon Dioxide 27 mmol/L (22-32); Calcium 8.8 mg/dL (8.6-10.3); Chloride 105 mmol/L (101-111); Creatinine, Serum 0.99 mg/dL (0.67-1.17); Globulin 2.3 g/dL (2-4); Glucose 91 mg/dL (70-100); Potassium 3.8 mmol/L (3.5-5.0); Sodium 138 mmol/L (135-145); Total Bilirubin 0.3 mg/dL (0.2-1.0); Total Protein 6.7 g/dL (6.4-8.9); eGFR CKD-EPI 104.4 (>60)
[2023-10-22 02:08] LABS: Urine Benzodiazepine Screen None Detected (None Detect); Urine Cannabinoids Screen None Detected (None Detect); Urine Opiates Screen None Detected (None Detect)
[2023-10-22 02:36] LABS: Acetaminophen < 15 mcg/mL; Alcohol, S 57 mg/dL (<13); Salicylate < 2.50 mg/dL (<30)
[2023-10-22 03:03] LABS: TSH Ultra Thyroid Stim Horm 0.97 mcIU/mL (0.34-5.60)
[2023-10-22] MEDS ORDERED: LORazepam 2 mg VIAL 1 ml IM ONE (07:19)
[2023-10-22] MEDS ORDERED: Lorazepam PYXIS KEY PRN (07:19)
[2023-10-22] MEDS ORDERED: Haloperidol 5 mg/ml SDV IV/IM 5 MG/ML AMP IM ONE (07:19)
[2023-10-22] MEDS ORDERED: Al Hydrox/Mg Hydrox/Simet LIQ 30 ML UDC PO PRN (08:42)
[2023-10-22] MEDS: Vitamin THERAPEUTIC TAB PO SCH (09:18)
[2023-10-22] MEDS: Nicotine PATCH 21 MG/24 HR PATCH TRANSDERM SCH (11:40)
[2023-10-23] MEDS: Nicotine PATCH 21 MG/24 HR PATCH TRANSDERM SCH (07:57)
[2023-10-23] MEDS: Vitamin THERAPEUTIC TAB PO SCH (07:58)
[2023-10-23 08:42] LABS: HDL Cholesterol 40.5 mg/dL
[2023-10-23] MEDS: Nicotine GUM 4MG FRUIT FLAVOR PO PRN (09:13)
[2023-10-23 17:33] LABS: PCO2 Arterial 43 mmHg (35-45); PO2 Arterial 64 mmHg (80-100)
[2023-10-24] MEDS: Vitamin THERAPEUTIC TAB PO SCH (07:55)
[2023-10-24] MEDS: Nicotine PATCH 21 MG/24 HR PATCH TRANSDERM SCH (07:56)
[2023-10-24] MEDS: Nicotine GUM 4MG FRUIT FLAVOR PO PRN (19:21)
[2023-10-25] MEDS: Nicotine GUM 4MG FRUIT FLAVOR PO PRN ×2 (00:59→18:30)
[2023-10-25] MEDS: Vitamin THERAPEUTIC TAB PO SCH (08:11)
[2023-10-25] MEDS: Nicotine PATCH 21 MG/24 HR PATCH TRANSDERM SCH (08:11)
[2023-10-26] MEDS: Vitamin THERAPEUTIC TAB PO SCH (07:20)
[2023-10-26] MEDS: Nicotine PATCH 21 MG/24 HR PATCH TRANSDERM SCH (07:20)
[2023-10-26] MEDS: Nicotine GUM 4MG FRUIT FLAVOR PO PRN (21:02)
[2023-10-27] MEDS: Nicotine GUM 4MG FRUIT FLAVOR PO PRN ×2 (02:15→07:41)
[2023-10-27] MEDS: Nicotine PATCH 21 MG/24 HR PATCH TRANSDERM SCH (08:33)
[2023-10-27] MEDS: Vitamin THERAPEUTIC TAB PO SCH (08:33)
[2023-10-27] MEDS ORDERED: Dexmedetomidine HCL 180 MCG FILM SL ONE (13:27)
[2023-10-28] MEDS: Vitamin THERAPEUTIC TAB PO SCH (09:42)
[2023-10-28] MEDS: Nicotine PATCH 21 MG/24 HR PATCH TRANSDERM SCH (09:43)
[2023-10-28] MEDS: Nicotine GUM 4MG FRUIT FLAVOR PO PRN (09:44)
[2023-10-29] MEDS: Nicotine PATCH 21 MG/24 HR PATCH TRANSDERM SCH (08:37)
[2023-10-29] MEDS: Vitamin THERAPEUTIC TAB PO SCH (08:37)
[2023-10-29] MEDS: Nicotine GUM 4MG FRUIT FLAVOR PO PRN (20:45)
[2023-10-30] MEDS: Vitamin THERAPEUTIC TAB PO SCH (09:49)
[2023-10-30] MEDS: Nicotine PATCH 21 MG/24 HR PATCH TRANSDERM SCH (09:49)
[2023-10-30] MEDS: Nicotine GUM 4MG FRUIT FLAVOR PO PRN (17:21)
[2023-10-30] MEDS ORDERED: Benztropine 2 mg AMP 1 MG/ML 2 ml AMP ONE (22:34)
[2023-10-30] MEDS ORDERED: Benztropine 2 mg AMP 1 MG/ML 2 ml AMP IM ONE (23:00)
[2023-10-31] MEDS: Nicotine PATCH 21 MG/24 HR PATCH TRANSDERM SCH (08:38)
[2023-10-31] MEDS: Vitamin THERAPEUTIC TAB PO SCH (08:38)
[2023-10-31 10:20] LABS: ABS Eosinophils 0.2 10^3/uL (0.0-0.5); ABS Lymphocytes 1.6 10^3/uL (1.0-4.8); ABS Monocytes 0.5 10^3/uL (0.0-1.1); ABS Neutrophils 3.6 10^3/uL (1.5-7.6); Eosinophil % 3.1 %; Hematocrit 43.8 % (38-53); Hemoglobin 15.5 g/dL (13.2-16.3); Lymphocyte % 26.6 %; Mean Corpuscular Hemoglobin 33.4 pg (27-33); Mean Corpuscular Hgb Conc 35.4 g/dL (31-36); Mean Corpuscular Volume 94.5 fL (80-97); Mean Platelet Volume 6.7 fL (7.5-11.2); Nucleated Red Blood Cells % 0.1 %/100WBC (0.0-0.8); Platelet Count 293 10^3/uL (150-450); Red Blood Count 4.64 10^6/uL (4.06-5.63); White Blood Count 5.9 10^3/uL (3.6-10.2)
[2023-10-31 11:28] LABS: Erythrocyte Sed Rate 3 mm/Hr (0-14)
[2023-10-31] MEDS: Nicotine GUM 4MG FRUIT FLAVOR PO PRN ×3 (13:07→20:52)
[2023-11-01] MEDS: Vitamin THERAPEUTIC TAB PO SCH (09:47)
[2023-11-01] MEDS: Nicotine PATCH 21 MG/24 HR PATCH TRANSDERM SCH (09:48)
[2023-11-01] MEDS: Nicotine GUM 4MG FRUIT FLAVOR PO PRN (19:20)
[2023-11-02] MEDS: Vitamin THERAPEUTIC TAB PO SCH (08:15)
[2023-11-02] MEDS: Nicotine GUM 4MG FRUIT FLAVOR PO PRN (08:17)
[2023-11-02] MEDS: Nicotine PATCH 21 MG/24 HR PATCH TRANSDERM SCH (08:21)
[2023-11-03] MEDS: Vitamin THERAPEUTIC TAB PO SCH (11:30)
[2023-11-03] MEDS: Nicotine GUM 4MG FRUIT FLAVOR PO PRN (11:32)
[2023-11-03] MEDS: Nicotine PATCH 21 MG/24 HR PATCH TRANSDERM SCH (11:33)
[2023-11-04] MEDS: Nicotine PATCH 21 MG/24 HR PATCH TRANSDERM SCH (09:08)
[2023-11-04] MEDS: Vitamin THERAPEUTIC TAB PO SCH (09:09)
[2023-11-04] MEDS: Nicotine GUM 4MG FRUIT FLAVOR PO PRN ×2 (09:11→20:26)
[2023-11-05] MEDS: Vitamin THERAPEUTIC TAB PO SCH (09:44)
[2023-11-05] MEDS: Nicotine GUM 4MG FRUIT FLAVOR PO PRN ×3 (09:45→21:40)
[2023-11-05] MEDS: Nicotine PATCH 21 MG/24 HR PATCH TRANSDERM SCH (09:46)
[2023-11-06] MEDS: Vitamin THERAPEUTIC TAB PO SCH (10:51)
[2023-11-06] MEDS: Nicotine GUM 4MG FRUIT FLAVOR PO PRN ×2 (10:54→19:55)
[2023-11-06] MEDS: Nicotine PATCH 21 MG/24 HR PATCH TRANSDERM SCH (10:57)
[2023-11-07] MEDS: Vitamin THERAPEUTIC TAB PO SCH (08:31)
[2023-11-07] MEDS: Nicotine PATCH 21 MG/24 HR PATCH TRANSDERM SCH (08:31)
[2023-11-07] MEDS: Nicotine GUM 4MG FRUIT FLAVOR PO PRN (14:53)
[2023-11-08] MEDS: Nicotine GUM 4MG FRUIT FLAVOR PO PRN ×3 (00:25→22:10)
[2023-11-08] MEDS: Nicotine PATCH 21 MG/24 HR PATCH TRANSDERM SCH (11:55)
[2023-11-08] MEDS: Vitamin THERAPEUTIC TAB PO SCH (12:22)
[2023-11-09] MEDS: Nicotine PATCH 21 MG/24 HR PATCH TRANSDERM SCH (11:23)
[2023-11-09] MEDS: Vitamin THERAPEUTIC TAB PO SCH (11:24)
[2023-11-09] MEDS: Nicotine GUM 4MG FRUIT FLAVOR PO PRN ×2 (11:24→20:10)
[2023-11-10] MEDS: Nicotine GUM 4MG FRUIT FLAVOR PO PRN ×3 (08:36→22:10)
[2023-11-10] MEDS: Vitamin THERAPEUTIC TAB PO SCH (08:36)
[2023-11-10] MEDS: Nicotine PATCH 21 MG/24 HR PATCH TRANSDERM SCH (13:22)
[2023-11-11] MEDS: Vitamin THERAPEUTIC TAB PO SCH (09:15)
[2023-11-11] MEDS: Nicotine GUM 4MG FRUIT FLAVOR PO PRN (09:18)
[2023-11-11] MEDS: Nicotine PATCH 21 MG/24 HR PATCH TRANSDERM SCH (13:01)
[2023-11-12] MEDS: Vitamin THERAPEUTIC TAB PO SCH (09:58)
[2023-11-12] MEDS: Nicotine PATCH 21 MG/24 HR PATCH TRANSDERM SCH (09:59)
[2023-11-12] MEDS: Nicotine GUM 4MG FRUIT FLAVOR PO PRN ×2 (09:59→20:09)
[2023-11-13] MEDS: Vitamin THERAPEUTIC TAB PO SCH (10:52)
[2023-11-13] MEDS: Nicotine GUM 4MG FRUIT FLAVOR PO PRN ×2 (11:05→20:23)
[2023-11-13] MEDS: Nicotine PATCH 21 MG/24 HR PATCH TRANSDERM SCH (13:14)
[2023-11-14] MEDS: Vitamin THERAPEUTIC TAB PO SCH (11:43)
[2023-11-14] MEDS: Nicotine PATCH 21 MG/24 HR PATCH TRANSDERM SCH (11:44)
[2023-11-14] MEDS: Nicotine GUM 4MG FRUIT FLAVOR PO PRN ×2 (11:45→21:53)
[2023-11-15] MEDS: Vitamin THERAPEUTIC TAB PO SCH (12:19)
[2023-11-15] MEDS: Nicotine PATCH 21 MG/24 HR PATCH TRANSDERM SCH (12:20)
[2023-11-15] MEDS: Nicotine GUM 4MG FRUIT FLAVOR PO PRN ×2 (16:08→20:40)
[2023-11-16 08:22] LABS: ABS Eosinophils 0.3 10^3/uL (0.0-0.5); ABS Lymphocytes 1.9 10^3/uL (1.0-4.8); ABS Monocytes 0.6 10^3/uL (0.0-1.1); ABS Neutrophils 4.9 10^3/uL (1.5-7.6); ABS Nucleated RBC 0.01 10^3/ul; Eosinophil % 3.7 %; Hematocrit 45.8 % (38-53); Hemoglobin 15.9 g/dL (13.2-16.3); Lymphocyte % 24.2 %; Mean Corpuscular Hemoglobin 32.4 pg (27-33); Mean Corpuscular Hgb Conc 34.7 g/dL (31-36); Mean Corpuscular Volume 93.3 fL (80-97); Mean Platelet Volume 6.6 fL (7.5-11.2); Nucleated Red Blood Cells % 0.1 %/100WBC (0.0-0.8); Platelet Count 301 10^3/uL (150-450); Red Blood Count 4.91 10^6/uL (4.06-5.63); White Blood Count 7.7 10^3/uL (3.6-10.2)
[2023-11-16 08:43] LABS: Albumin 4.5 g/dL (3.2-5.2); Albumin/Globulin Ratio 1.7 (1-3); Calcium 9.2 mg/dL (8.6-10.3); Creatinine, Serum 0.93 mg/dL (0.67-1.17); Globulin 2.7 g/dL (2-4); Potassium 3.9 mmol/L (3.5-5.0); Total Bilirubin 0.5 mg/dL (0.2-1.0); Total Protein 7.2 g/dL (6.4-8.9); eGFR CKD-EPI 112.6 (>60)
[2023-11-16 08:52] LABS: Lithium 0.17 mmol/L (0.6-1.2)
[2023-11-16 09:07] LABS: TSH Ultra Thyroid Stim Horm 1.43 mcIU/mL (0.34-5.60)
[2023-11-16] MEDS: Vitamin THERAPEUTIC TAB PO SCH (11:02)
[2023-11-16] MEDS: Nicotine GUM 4MG FRUIT FLAVOR PO PRN ×2 (11:03→21:55)
[2023-11-16] MEDS: Nicotine PATCH 21 MG/24 HR PATCH TRANSDERM SCH (11:23)
[2023-11-17] MEDS: Nicotine GUM 4MG FRUIT FLAVOR PO PRN ×2 (10:59→20:27)
[2023-11-17] MEDS: Vitamin THERAPEUTIC TAB PO SCH (10:59)
[2023-11-17] MEDS: Nicotine PATCH 21 MG/24 HR PATCH TRANSDERM SCH (10:59)
[2023-11-18] MEDS: Nicotine GUM 4MG FRUIT FLAVOR PO PRN ×2 (09:55→20:56)
[2023-11-18] MEDS: Vitamin THERAPEUTIC TAB PO SCH (09:55)
[2023-11-18] MEDS: Nicotine PATCH 21 MG/24 HR PATCH TRANSDERM SCH (09:56)
[2023-11-19] MEDS: Nicotine PATCH 21 MG/24 HR PATCH TRANSDERM SCH (08:59)
[2023-11-19] MEDS: Vitamin THERAPEUTIC TAB PO SCH (08:59)
[2023-11-19] MEDS: Nicotine GUM 4MG FRUIT FLAVOR PO PRN ×2 (09:00→20:00)
[2023-11-20] MEDS: Nicotine GUM 4MG FRUIT FLAVOR PO PRN (11:06)
[2023-11-20] MEDS: Vitamin THERAPEUTIC TAB PO SCH (11:07)
[2023-11-20] MEDS: Nicotine PATCH 21 MG/24 HR PATCH TRANSDERM SCH (11:07)
[2023-11-21] MEDS: Vitamin THERAPEUTIC TAB PO SCH (10:53)
[2023-11-21] MEDS: Nicotine GUM 4MG FRUIT FLAVOR PO PRN ×2 (10:53→20:16)
[2023-11-21] MEDS: Nicotine PATCH 21 MG/24 HR PATCH TRANSDERM SCH (10:54)
[2023-11-22] MEDS: Nicotine GUM 4MG FRUIT FLAVOR PO PRN (08:32)
[2023-11-22] MEDS: Vitamin THERAPEUTIC TAB PO SCH (09:13)
[2023-11-22] MEDS: Nicotine PATCH 21 MG/24 HR PATCH TRANSDERM SCH (09:13)
[2023-11-23] MEDS: Vitamin THERAPEUTIC TAB PO SCH (10:53)
[2023-11-23] MEDS: Nicotine PATCH 21 MG/24 HR PATCH TRANSDERM SCH (10:53)
[2023-11-23] MEDS: Nicotine GUM 4MG FRUIT FLAVOR PO PRN (20:39)
[2023-11-24] MEDS: Vitamin THERAPEUTIC TAB PO SCH (08:49)
[2023-11-24] MEDS: Nicotine GUM 4MG FRUIT FLAVOR PO PRN (08:50)
[2023-11-25] MEDS: Vitamin THERAPEUTIC TAB PO SCH (09:21)
[2023-11-25] MEDS: Nicotine GUM 4MG FRUIT FLAVOR PO PRN ×2 (09:24→21:42)
[2023-11-26] MEDS: Vitamin THERAPEUTIC TAB PO SCH (10:40)
[2023-11-26] MEDS: Nicotine GUM 4MG FRUIT FLAVOR PO PRN (22:20)
[2023-11-27] MEDS: Vitamin THERAPEUTIC TAB PO SCH (07:57)
[2023-11-28] MEDS: Vitamin THERAPEUTIC TAB PO SCH (08:18)
[2023-11-29] MEDS: Vitamin THERAPEUTIC TAB PO SCH (08:36)
[2023-11-30] MEDS: Vitamin THERAPEUTIC TAB PO SCH (08:32)
[2023-11-30 08:39] VITALS: BP 158/78
== END 2023-11-30 09:37 | DRG 750 ==
LOC: ED 00:28 → BSU 08:42
PROVIDERS: ADMIT Psychiatry & Neurology Psychiatry; ATTEND Psychiatry & Neurology Psychiatry

== ENCOUNTER 2024-05-25 22:12 | Inpatient (IN) ==
[2024-05-25] MEDS: LORazepam 2 mg VIAL 1 ml IM ONE (22:27)
[2024-05-25] MEDS: Haloperidol 5 mg/ml SDV IV/IM 5 MG/ML AMP IM ONE (22:28)
[2024-05-25 22:59] LABS: ABS Eosinophils 0.2 10^3/uL (0.0-0.5); ABS Lymphocytes 1.9 10^3/uL (1.0-4.8); ABS Monocytes 0.4 10^3/uL (0.0-1.1); ABS Neutrophils 3.6 10^3/uL (1.5-7.6); ABS Nucleated RBC 0.01 10^3/ul; Eosinophil % 3.8 %; Hematocrit 42.4 % (38-53); Hemoglobin 14.9 g/dL (13.2-16.3); Mean Corpuscular Hemoglobin 32.4 pg (27-33); Mean Corpuscular Hgb Conc 35.1 g/dL (31-36); Mean Corpuscular Volume 92.2 fL (80-97); Mean Platelet Volume 6.6 fL (7.5-11.2); Nucleated Red Blood Cells % 0.1 %/100WBC (0.0-0.8); Platelet Count 283 10^3/uL (150-450); Red Cell Distribution Width 12.9 % (12-17); White Blood Count 6.2 10^3/uL (3.6-10.2)
[2024-05-26 00:08] LABS: ALT 44 U/L (7-52); AST 59 U/L (13-39); Acetaminophen < 15 mcg/mL; Albumin 4.4 g/dL (3.2-5.2); Alcohol, S < 13 mg/dL (<13); Alkaline Phosphatase 116 U/L (35-149); Anion Gap 7 mmol/L (2-16); Blood Urea Nitrogen 10 mg/dL (6-24); CO2 Carbon Dioxide 22 mmol/L (22-32); Chloride 111 mmol/L (101-111); Creatinine, Serum 0.79 mg/dL (0.67-1.17); Globulin 2.2 g/dL (2-4); Glucose 120 mg/dL (70-100); Potassium 3.9 mmol/L (3.5-5.0); Salicylate < 2.50 mg/dL (<30); Sodium 140 mmol/L (135-145); Total Bilirubin 0.4 mg/dL (0.2-1.0); Total Protein 6.6 g/dL (6.4-8.9)
[2024-05-26 00:20] LABS: TSH Ultra Thyroid Stim Horm 2.21 mcIU/mL (0.34-5.60)
[2024-05-26 10:32] LABS: Urine Appearance Clear; Urine Bilirubin Negative (Negative); Urine Blood Negative (Negative); Urine Color Yellow; Urine Glucose Negative (Negative); Urine Ketones Negative (Negative); Urine Nitrite Negative (Negative); Urine Protein Negative (Negative); Urine Specific Gravity 1.023 (1.002-1.030); Urine Urobilinogen 1+ (Negative)
[2024-05-26 10:34] LABS: Urine Bacteria Absent /HPF (Absent); Urine Red Blood Cell Absent /HPF (0-Trace); Urine Squamous Epithelial Cell Present /HPF (Absent); Urine White Blood Cell 1+(6-10/hpf) /HPF (0-Trace)
[2024-05-26 10:50] LABS: Urine Benzodiazepine Screen None Detected (None Detect); Urine Cannabinoids Screen None Detected (None Detect); Urine Opiates Screen None Detected (None Detect)
[2024-05-26 14:09] LABS: Lithium 0.31 mmol/L (0.6-1.2)
[2024-05-26] MEDS ORDERED: Nicotine GUM 4MG FRUIT FLAVOR PO PRN (15:40)
[2024-05-26] MEDS ORDERED: Nicotine Lozenge mini 4 MG LOZNG.MINI MT PRN (15:40)
[2024-05-26] MEDS ORDERED: Al Hydrox/Mg Hydrox/Simet LIQ 30 ML UDC PO PRN (16:59)
[2024-05-27] MEDS: Nicotine PATCH 21 MG/24 HR PATCH TRANSDERM SCH (09:28)
[2024-05-27] MEDS: Dexmedetomidine HCL 180 MCG FILM SL ONE (16:54)
[2024-06-03] MEDS: Nicotine PATCH 21 MG/24 HR PATCH TRANSDERM SCH (09:23)
[2024-06-12 09:39] VITALS: BP 123/64
[2024-06-22] MEDS ORDERED: Nicotine PATCH 21 MG/24 HR PATCH TRANSDERM SCH (09:00)
== END 2024-06-22 10:43 | DRG 885 ==
LOC: ED 22:12 → EDHOLD 05-26 13:50 → BSU 05-26 14:43
PROVIDERS: ADMIT Psychiatry & Neurology Psychiatry; ATTEND Psychiatry & Neurology Psychiatry